=== PATIENT | male | born 1935 | race Caucasian/White ===

== ENCOUNTER → 2023-08-08 11:01 | Outpatient (REF) | payer OTHER, SELFPAY | LOC: HWRCS 11:01 | PROVIDERS: ATTENDING PHYSICIAN Internal Medicine Cardiovascular Disease; FAMILY PHYSICIAN Family Medicine | DX: R55 Syncope and collapse (principal); I25.10 Atherosclerotic heart disease of native coronary artery without angina pectoris; I34.0 Nonrheumatic mitral (valve) insufficiency | CPT/HCPCS: 93306 ==

== ENCOUNTER 2023-12-08 11:53 | Emergency (ER) | payer OTHER, SELFPAY ==
[2023-12-08 12:23] VITALS: BP 128/103
--- NOTE | 2023-12-08 12:49 | ED.GENMED ---
History of Present Illness
<Annie Ferrer PA-C - Last Filed: 12/08/23 17:22>
General
Chief Complaint: Swelling
Source: patient
Time Seen by Provider: 12/08/23 12:42
History of Present Illness
History of Present Illness:
88yoM with a history of coronary artery disease, hypertension, hyperlipidemia, and type 2 diabetes presenting for evaluation of right leg swelling. Patient had a fall about a week ago and was seen at [place] ED. He had x-rays of his right hip and
he was told that he had arthritis in the hip as well as a 'slight crack.' He has been having ongoing pain since then and woke up this morning with swelling to the thigh so he decided to come to the ED. He has no other complaints currently. He denies
any further injury since his initial fall. He typically ambulates with a walker.
Past History
<Annie Ferrer PA-C - Last Filed: 12/08/23 17:22>
Past History
ED Past Medical History: CAD, HTN, Hypercholesterolemia and NIDDM
ED Past Surgical History: Cardiac and Orthopedic
Social History
Tobacco: Former smoker
Alcohol: None
Drug: None
Personal:
Living: alone
Employment: Employed
Family History
Family History: Other (Noncontributory)
Phy Exam
<Annie Ferrer PA-C - Last Filed: 12/08/23 17:22>
General Physical Exam
General Presentation: well appearing and no apparent distress
General age: appears stated age
General Skin: warm and dry
General Habitus: elderly
Pulmonary Exam
Pulmonary Exam: no respiratory distress
[place] Coma Scale
Eye Opening: Spontaneous
Verbal Response: Oriented
Motor Response: Obeys Commands
GCS Total Score: 15
Musculoskeletal Exam
Musculoskeletal Exam: other (R thigh: Ecchymosis noted to anterior/medial thigh with swelling in the thigh. Compartments soft and compressible. ROM of R hip decreased 2/2 pain.)
Skin Exam
Skin Exam: warm/dry
Psychiatric Exam
Psychiatric Exam: normal mood/affect
<Gayla Alvarado MD - Last Filed: 12/08/23 16:50>
[place] Coma Scale
GCS Total Score: 15
Scores
<Annie Ferrer PA-C - Last Filed: 12/08/23 17:22>
Heart Failure Risk
Heart Failure Risk Score: Not Applicable
Course
<Annie Ferrer PA-C - Last Filed: 12/08/23 17:22>
Orders/Labs/Results
Orders:
Orders
12/08/23 12:49
CR Femur - Right Min 2 Vw Urgent
Comment:
Reason For Exam: Injury
Hip, Right 2-3 Views [CR Hip - RT w/wo Pel 2-3 Vw*] Urgent
Comment:
Reason For Exam: Pain
Include a pelvis x-ray?: Yes
Venous Doppler Lwr Ext Rt [US Periph Venous LOWER Ext RT] Urgent
Comment:
Reason For Exam: R thigh swelling
12/08/23 16:24
Ambulate Patient-Treatment ONCE
Vital Signs
Initial and Last Documented VS:
Initial Vital Signs
Pulse Resp Pulse Ox
73 17 98
12/08/23 12:12 12/08/23 12:12 12/08/23 12:12
Last Documented Vital Signs
Temp Pulse Resp BP Pulse Ox
98.6 F 72 21 159/72 94
12/08/23 12:23 12/08/23 15:29 12/08/23 15:29 12/08/23 15:29 12/08/23 15:29
<Gayla Alvarado MD - Last Filed: 12/08/23 16:50>
Orders/Labs/Results
Orders:
Orders
12/08/23 12:49
CR Femur - Right Min 2 Vw Urgent
Comment:
Reason For Exam: Injury
Hip, Right 2-3 Views [CR Hip - RT w/wo Pel 2-3 Vw*] Urgent
Comment:
Reason For Exam: Pain
Include a pelvis x-ray?: Yes
Venous Doppler Lwr Ext Rt [US Periph Venous LOWER Ext RT] Urgent
Comment:
Reason For Exam: R thigh swelling
12/08/23 16:24
Ambulate Patient-Treatment ONCE
Vital Signs
Initial and Last Documented VS:
Initial Vital Signs
Pulse Resp Pulse Ox
73 17 98
12/08/23 12:12 12/08/23 12:12 12/08/23 12:12
Last Documented Vital Signs
Temp Pulse Resp BP Pulse Ox
98.6 F 72 21 159/72 94
12/08/23 12:23 12/08/23 15:29 12/08/23 15:29 12/08/23 15:29 12/08/23 15:29
<Annie Ferrer PA-C - Last Filed: 12/08/23 17:22>
MDM/Problems Addressed
Differential Diagnosis Includes:
88yoM here with R leg swelling that started this morning. Hx of fall last week and has been having R hip pain since then. He is afebrile and hemodynamically stable. He is well appearing in no distress. There is ecchymosis and swelling noted to the R
thigh. RLE is neurovascularly intact. Differential diagnosis includes but is not limited to: contusion, hematoma, fracture, DVT
Initial ED plan: Check right hip/femur x-rays and venous duplex.
<Gayla Alvarado MD - Last Filed: 12/08/23 16:50>
*Radiology
Radiology exam reviewed: radiology read reviewed
*Pulse Oximetry
Patient hypoxic: no
*EKG
Interpreted by ED Provider?: NA
*Volunteer Services Director Interpretation
Rate: Volunteer Services Director- N/A
*Critical Care Note
Total Time (30-74mins, 75-104mins- exclusive of procedures): Not Applicable
Data Reviewed
Source: patient
<Gayla Alvarado MD - Last Filed: 12/08/23 16:50>
Patient Management
Social determinants of health affecting care: Living situation and Strong social support
<Annie Ferrer PA-C - Last Filed: 12/08/23 17:22>
Update Note
Update Note:
X-rays show osteoarthritis without fractures. Patient signed out to Dr. Alvarado pending venous duplex results.
ED Attending Note
<Annie Ferrer PA-C - Last Filed: 12/08/23 17:22>
-
Portions of this chart may have been created with voice recognition software.� Occasional wrong word or��sound alike� substitutions may have occurred due to the inherent limitations of voice recognition software.
<Gayla Alvarado MD - Last Filed: 12/08/23 16:50>
ED Attending Note
Patient seen and examined by attending physician: Yes
I performed the substantive portion of visit, reviewed & personally made and approve the management plan that is documented in note by myself or KELBY.: Yes
ED Attending Note:
Patient appears well. He is smiling and conversational. Patient was able to walk around steadily with his walker, which is how he generally gets around. X-ray showed no fracture. Ultrasound shows no sign of DVT. Patient reports he is very
comfortable and happy to go home.
Discharge Plan
Departure
Patient Disposition: Home (Routine Discharge)
Date of Disposition: 12/08/23
Time of Disposition: 16:44
Patient with high blood pressure during this ER visit?: Yes
Condition: Good
Covid-19: Not Applicable
Discharge Problem:
Contusion of right thigh
Instructions: BLOOD PRESSURE, Contusion
Prescriptions:
No Action
aspirin 81 MG tablet,delayed release (DR/EC)
81 mg PO DAILY
rosuvastatin [Crestor] 40 MG tablet
40 mg PO HS
tamsulosin 0.4 MG capsule
0.4 mg PO DAILY
citalopram 20 MG tablet
40 mg PO DAILY
nateglinide [Starlix] 60 MG tablet
60 mg PO BID
Patient Comments:
clopidogrel 75 MG tablet
75 mg PO HS
ezetimibe 10 MG tablet
10 mg PO DAILY
nitroglycerin 0.4 MG tablet, sublingual
0.4 mg sublingual [id number] PRN (Reason: CHEST PAIN)
ranolazine 500 MG tablet extended release 12 hr
500 mg PO BID
metformin 500 MG tablet
1,000 mg PO BID
melatonin 10 MG capsule
metoprolol tartrate 12.5 MG tablet
12.5 mg PO BID Qty: 60 0RF
insulin detemir U-100 [Levemir U-100 Insulin] 1,000 UNITS/10 ML solution
10 units SC BID Qty: 0 0RF
Patient Comments:
Patient takes if BS > 140
Referrals:
Ozzy Flores MD [Family Provider] -
Interventions
Interventions:
*Risk Screen - Suicide Last Done: 12/08/23 12:22
*General Assessment Last Done: 12/08/23 12:22
*Neglect/Abuse Screening Last Done: 12/08/23 12:22
*ED COVID-19 Vaccine History Last Done: 12/08/23 12:23
*Nursing Disposition Last Done: 12/08/23 17:03
ED- Cardiac Assessment Last Done: 12/08/23 14:11
ED- Pulmonary Assessment Last Done: 12/08/23 14:11
ED-Skin Assessment Last Done: 12/08/23 14:11
Discharge Date and Time
Discharge Date/Time: 12/08/23 17:08
Print Language: ERITREAN
[2023-12-08 15:29] VITALS: BP 159/72
== END 2023-12-08 17:08 | disposition home or self-care (01) ==
LOC: EMR 11:53
PROVIDERS: EMERGENCY PHYSICIAN Emergency Medicine; FAMILY PHYSICIAN Family Medicine
DX: S70.11XA Contusion of right thigh, initial encounter (principal); W19.XXXA Unspecified fall, initial encounter; E11.9 Type 2 diabetes mellitus without complications; I10 Essential (primary) hypertension; E78.5 Hyperlipidemia, unspecified; I25.10 Atherosclerotic heart disease of native coronary artery without angina pectoris; Z87.891 Personal history of nicotine dependence
CPT/HCPCS: 99284; 73502; 73552; 93971

== ENCOUNTER 2023-12-13 11:15 | Emergency (ER) | payer OTHER, SELFPAY ==
[2023-12-13 11:16] VITALS: BP 96/57
--- NOTE | 2023-12-13 11:46 | ED.GENMED ---
History of Present Illness
General
Chief Complaint: Skin Problem
Source: patient
Exam Limitations: none
Time Seen by Provider: 12/13/23 11:35
Nursing documentation reviewed up to this point in time: agreed with
History of Present Illness
History of Present Illness:
Patient is an 88-year-old male presents to the ER for evaluation of bruising to right thigh. Patient was just recently here December 07 for evaluation of this. It was noted on that visit that a week prio he had a fallr and was taken to [place] ED.
At that time he had x-rays of the hip and told he had arthritis. Because of continued pain he came to the ER December 07 for evaluation. He did have x-rays done of hip femur and also ultrasound which was negative. He is on Plavix.
He does not feel like the bruising is getting better in fact he feels like there is getting slightly worse he has some soreness to the area. He is able to walk. He does live alone and [place].
Past History
Past History
ED Past Medical History: CAD, HTN, Hypercholesterolemia and NIDDM
ED Past Surgical History: Cardiac and Orthopedic
Social History
Tobacco: Former smoker
Alcohol: None
Drug: None
Personal:
Living: alone
Employment: Employed
Family History
Family History: Other (Noncontributory)
Review of Systems
Review of Systems
Allergies reviewed?: Yes
All Other Systems: ROS reviewed and negative except as documented in HPI and ROS
Constitutional: Reports no symptoms
Musculoskeletal: Reports other (right leg bruising /soreness )
Skin: Reports no symptoms
Hematologic/Lymphatic: Reports no symptoms
Psychiatric: Reports no symptoms
Phy Exam
General Physical Exam
General Presentation: no apparent distress
General age: appears stated age
General Skin: warm and dry
General Habitus: elderly
General Mental: alert
General Hydration: appears well hydrated
Neurological Exam
Neurological Exam: alert and oriented x3
Musculoskeletal Exam
Musculoskeletal Exam: other (Bilateral lower extremities with strong pulses right thigh with scattered ecchymosis very minimal swelling compared to left thigh however full range of motion)
Course
Orders/Labs/Results
Orders:
Orders
12/13/23 12:13
Venous Doppler Lwr Ext Rt [US Periph Venous LOWER Ext RT] Urgent
Comment:
Reason For Exam: bruising /pain
12/13/23 12:21
Complete Blood Count/With Diff Urgent
Comprehensive Metabolic Panel Urgent
Abnormal Lab Results
12/13/23
12:21
RBC 4.28 L 10^6/uL
(4.70-6.10)
Hgb 12.5 L g/dL
(13.0-18.0)
Hct 36.3 L %
(39.0-52.0)
RDW 15.2 H %
(11.5-14.5)
Abs Immat Gran (auto) 0.1 H 10^3/uL
(0-0.05)
Absolute Lymphs (auto) 1.1 L 10^3/uL
(1.2-3.4)
Absolute Monos (auto) 0.7 H 10^3/uL
(0.1-0.6)
Immature Gran % 1.1 H %
(0-0.5)
Lymphocytes % 15.8 L %
(20.5-51.1)
Monocytes % 10.2 H %
(1.7-9.3)
BUN 22 H mg/dl
(9-20)
Glucose 177 H mg/dl
(70-99)
12/13/23 12:21
12/13/23 12:21
Vital Signs
Initial and Last Documented VS:
Initial Vital Signs
Temp Pulse Resp BP Pulse Ox
98.4 F 82 18 96/57 96
12/13/23 11:16 12/13/23 11:16 12/13/23 11:16 12/13/23 11:16 12/13/23 11:16
Last Documented Vital Signs
Temp Pulse Resp BP Pulse Ox
98.4 F 75 18 160/77 97
12/13/23 11:16 12/13/23 14:04 12/13/23 14:04 12/13/23 14:04 12/13/23 14:04
MDM/Problems Addressed
MDM/Problems Addressed:
Patient is an 88 show male who lives by himself was seen here December 07 for evaluation of fall that took place over a week ago from that visit. He had x-rays and ultrasound which was negative but continues to complain of bruising that he does not
feel is improving and mild discomfort. Patient is on Plavix will check hemoglobin to make sure no hemoglobin drop and repeat ultrasound. He however is in no acute distress good range of motion to legs.
1420:Patient no acute distress ultrasound negative for DVT. Patient's hemoglobin is stable at 12.5 (last hemoglobins were from 2021). Patient's chemistries are unremarkable(glucose minimally elevated BUN 22)
Likely healing contusion residual ecchymosis.
*Pulse Oximetry
Patient hypoxic: no
*Critical Care Note
Total Time (30-74mins, 75-104mins- exclusive of procedures): Not Applicable
Data Reviewed
Review of Other/Old Records Reveals: Other (previous ED visit)
ED Attending Note
-
Portions of this chart may have been created with voice recognition software.� Occasional wrong word or��sound alike� substitutions may have occurred due to the inherent limitations of voice recognition software.
Discharge Plan
Departure
Patient Disposition: Home (Routine Discharge)
Date of Disposition: 12/13/23
Time of Disposition: 14:25
Patient with high blood pressure during this ER visit?: Yes
Condition: Fair
Covid-19: Not Applicable
Discharge Problem:
Contusion
Instructions: BLOOD PRESSURE, Contusion
Prescriptions:
No Action
aspirin 81 MG tablet,delayed release (DR/EC)
81 mg PO DAILY
rosuvastatin [Crestor] 40 MG tablet
40 mg PO HS
tamsulosin 0.4 MG capsule
0.4 mg PO DAILY
citalopram 20 MG tablet
40 mg PO DAILY
nateglinide [Starlix] 60 MG tablet
60 mg PO BID
Patient Comments:
clopidogrel 75 MG tablet
75 mg PO HS
ezetimibe 10 MG tablet
10 mg PO DAILY
nitroglycerin 0.4 MG tablet, sublingual
0.4 mg sublingual [id number] PRN (Reason: CHEST PAIN)
ranolazine 500 MG tablet extended release 12 hr
500 mg PO BID
metformin 500 MG tablet
1,000 mg PO BID
melatonin 10 MG capsule
metoprolol tartrate 12.5 MG tablet
12.5 mg PO BID Qty: 60 0RF
insulin detemir U-100 [Levemir U-100 Insulin] 1,000 UNITS/10 ML solution
10 units SC BID Qty: 0 0RF
Patient Comments:
Patient takes if BS > 140
Referrals:
Ozzy Flores MD [Family Provider] -
Activity Restrictions/Additional Instructions:
Your symptoms are consistent with healing contusion. Your labs and ultrasound were unremarkable. Follow-up with your family doctor the next several days return if any worsening of symptoms
Interventions
Interventions:
*Risk Screen - Suicide Last Done: 12/13/23 11:35
*General Assessment Last Done: 12/13/23 11:35
*Neglect/Abuse Screening Last Done: 12/13/23 11:35
*ED COVID-19 Vaccine History Last Done: 12/13/23 11:35
Discharge Date and Time
Print Language: BENGALI
[2023-12-13 12:30] LABS: % Basophils 0.8 % (0-2); % Eosinophils 2.2 % (0-6); % Immature Granulocytes 1.1 % (0-0.5); % Lymphocytes 15.8 % (20.5-51.1); % Monocytes 10.2 % (1.7-9.3); % Neutrophils 69.9 % (42.2-75.2); Absolute Basophils 0.1 10^3/uL (0-0.2); Absolute Eosinophils 0.2 10^3/uL (0-0.7); Absolute Immature Granulocytes 0.1 10^3/uL (0-0.05); Absolute Lymphocytes 1.1 10^3/uL (1.2-3.4); Absolute Monocytes 0.7 10^3/uL (0.1-0.6); Hematocrit 36.3 % (39.0-52.0); Hemoglobin 12.5 g/dL (13.0-18.0); Mean Corp Hgb Conc. 34.4 g/dL (33.0-37.0); Mean Corpuscular Hgb 29.2 pg (27.0-31.0); Mean Corpuscular Volume 84.8 fL (80.0-94.0); Mean Platelet Volume 8.8 fL (7.4-10.4); Nucleated Red Blood Cells % 0 % (-); Platelet Count 186 10^3/uL (130-400); Red Blood Cell Count 4.28 10^6/uL (4.70-6.10); Red Cell Dist. Width 15.2 % (11.5-14.5); White Blood Cell Count 7.1 10^3/uL (4.8-10.8)
[2023-12-13 12:44] LABS: ALT (SGPT) 28 U/L (0-50); AST (SGOT) 33 U/L (17-59); Albumin 4.1 g/dl (3.5-5.0); Alkaline Phosphatase 68 U/L (38-126); Blood Urea Nitrogen 22 mg/dl (9-20); Calcium 9.1 mg/dl (8.4-10.2); Carbon Dioxide 26 mmol/L (22-30); Chloride 103 mmol/L (98-107); Glucose 177 mg/dl (70-99); Potassium 4.8 mmol/L (3.5-5.1); Sodium 140 mmol/L (135-145); Total Bilirubin 1.1 mg/dl (0.2-1.3); Total Protein 6.3 g/dl (6.3-8.2); eGFR > 60.00
[2023-12-13 14:04] VITALS: BP 160/77
[2023-12-13 14:43] VITALS: BP 160/77
== END 2023-12-13 15:00 | disposition home or self-care (01) ==
LOC: EMR 11:15
PROVIDERS: Nurse Practitioner; EMERGENCY PHYSICIAN Emergency Medicine; FAMILY PHYSICIAN Family Medicine
DX: S70.11XA Contusion of right thigh, initial encounter (principal); X58.XXXA Exposure to other specified factors, initial encounter; E11.9 Type 2 diabetes mellitus without complications; E78.00 Pure hypercholesterolemia, unspecified; I10 Essential (primary) hypertension; I25.10 Atherosclerotic heart disease of native coronary artery without angina pectoris; Z79.02 Long term (current) use of antithrombotics/antiplatelets; Z87.891 Personal history of nicotine dependence; Z60.2 Problems related to living alone
CPT/HCPCS: 99284; 80053; 85025; 93971

== ENCOUNTER 2024-05-18 17:20 | Inpatient (IN) | payer OTHER, SELFPAY ==
[2024-05-18] VITALS (8 sets, daily range): BP systolic 87–113; BP diastolic 51–67; BMI 22.5
--- NOTE | 2024-05-18 14:20 | ED.GENMED ---
History of Present Illness
General
Chief Complaint: Chest Problem
Source: patient
Exam Limitations: none
Time Seen by Provider: 05/18/24 14:19
Nursing documentation reviewed up to this point in time: agreed with
History of Present Illness
History of Present Illness:
88-year-old male with history of CVA, dementia, AAA, HTN, HLD, OR, BPH, kidney stones, IDDM, anemia, alcohol abuse, depression presents from where he was diagnosed Flu positive. He told them his chest hurts when he coughs so the called EMS and
sent pt here.
Pt states he hasn't felt well for past 3 days...poor appetite, cough, fatigue. Vomited once this a.m., denies feeling nauseous now. Denies diarrhea.
Past History
Past History
ED Past Medical History: CAD, HTN, Hypercholesterolemia and NIDDM
ED Past Surgical History: Cardiac and Orthopedic
Social History
Tobacco: Former smoker
Alcohol: None
Drug: None
Personal:
Living: alone
Employment: Not employed
Family History
Family History: Other (Noncontributory)
Review of Systems
Review of Systems
Allergies reviewed?: Yes
All Other Systems: ROS reviewed and negative except as documented in HPI and ROS
Constitutional: Reports fatigue; Denies fever
Respiratory: Reports cough; Denies trouble breathing
Cardiac: Reports chest pain; Denies diaphoresis or palpitations
ABD/GI: Reports vomiting (once this a.m.) and anorexia; Denies abdominal pain, nausea, diarrhea or constipated
: Denies dysuria, frequency or difficulty voiding
Musculoskeletal: Reports no symptoms
Skin: Reports no symptoms
Neurological: Reports no symptoms
Phy Exam
Physical Exam
Physical Exam:
GENERAL: No acute distress. A&Ox3. Very pleasant elderly man
CONSTITUTIONAL: Afebrile.
EYES: clear, conjunctivae normal
ENMT: moist mucus membranes, Pharynx nl
RESPIRATORY: Regular respirations, nonlabored, lungs clear. Occasional cough
CARDIOVASCULAR: Regular rate and rhythm, no murmurs, no rubs.
GI: Soft, nontender, normal BS
MUSCULOSKELETAL: Moves with ease. Well perfused. No edema
SKIN: Warm, dry, pink
PSYCH: Normal mood and affect. Well kept, interactive and appropriate
NEUROLOGIC: Awake, alert and oriented. No focal neurological deficits
Course
Orders/Labs/Results
Orders:
Orders
05/18/24 14:19
EKG [Electrocardiogram (*1)] Urgent
Reason for Study: Chest Pain
EKG- Treatment ONCE
Complete Blood Count/With Diff Urgent
05/18/24 14:27
CR Chest - 2 Views Urgent
Comment:
Reason For Exam: cough, chest pain, flu positive
05/18/24 14:29
0.9% Sodium Chloride 500 ml [Nss] 500 ml IV BOLUS
05/18/24 14:34
CMP [Comprehensive Metabolic Panel] Urgent
COVID-19 Antigen Urgent
Source: Nasal Swab
Troponin I Urgent
Influenza A+B Rapid Molecular Urgent
ANGELI Source: Nasal Swab
Specimen Description:
05/18/24 15:20
Aspirin 325 mg PO NOW STA
05/18/24 17:00
Electrocardiogram (*1) Urgent
Reason for Study: Atrial Fibrillation
Other Reason for Exam: Was sinus on arrival
EKG- Treatment ONCE
05/18/24 17:01
PTT Urgent
Comment: Obtain baseline before beginning heparin infusion if not already collected
Heparin 4,000 units IV NOW STA
Pharmacy Request to Place See Dose Instructions PO NOW STA
Discontinue all Active Warfarin orders?: Yes
Nursing to Place Non Medication Order As Directed
Physician Order: PTT 6 hours after initial start of Heparin infusion
05/18/24 17:03
Admit/Transfer Patient As Directed
Co-Sign Provider:
Level of Care: Inpatient admission
Assign to:: Telemetry
Physician / Group: anastasia
Diagnosis: nstemi
Reason for Telemetry: Arrhythmia
Date to Stop Telemetry: 05/21/24
Time to Stop Telemetry: 11:00
Reason for Hospitalization: nstemi
Expected length of stay greater than two midnights?: Yes
ELOS- Estimated Length of Stay in days: 2
I certify the patient meets the requirements for IP care: Yes
PRN Pain Medication Management As Directed
May give lesser potent ordered pain med per pt: Yes
preference::
Protocol:: Medication orders for pain may be administered in a
manner that supports deferring to patient preference
when the pt is:
- Requesting an ordered lesser potent pain medication.
Least to most potent pain medications are defined
as: acetaminophen < NSAID < tramadol < opioids
(morphine, oxycodone, hydromorphone).
- Requesting a lesser dose of the same medication IF
ORDERED.
- Requesting a less intrusive route of administration
if both routes are prescribed by the provider (PO <
IV).
05/18/24 17:04
Code Status As Directed
Resuscitation Status: Full Code
05/18/24 17:15
Heparin 44599 Units/250 ml 25,000 units in 250 ml IV PER PROTOCOL
Weight to be used for heparin protocol in kilograms (kg):: 71.2
Protocol:: Cardiac Tx/Acute Coronary
PTT Goal Range to be used:: PTT 73 to 111 seconds
Order type:: Initial
INITIAL Infusion Dose (UNITS/KG/hr) & then follow protocol:: 12 units/kg/hr
Infusion Dose in UNITS/hr & then follow protocol (UNITS/hr):: 850
INFUSION RATE in mL/hr & then follow protocol (mL/hr):: 8.5
PTT less than or equal to 64 seconds:: Increase rate by 200 units/hr (+ 2 mL/hr)
PTT 64.1 to 72.9 seconds:: Increase rate by 100 units/hr (+ 1 mL/hr)
PTT 73 to 111 seconds:: Target Range. No change in rate.
PTT 111.1 to 130.9 seconds:: Decrease rate by 100 units/hr (- 1 mL/hr)
PTT 131 to 199.9 seconds:: HOLD for 1 hr. Then decrease rate by 200 units/hr (- 2 mL/hr)
PTT greater than or equal to 200 seconds:: HOLD for 2 hrs & Notify Provider. Then decrease by 200 units/hr (-
2 mL/hr)
Lab follow-up:: Each change, PTT q6h until 2 consecutive are therapeutic. Then PTT
daily.
05/18/24 17:30
Troponin I Urgent
05/18/24 18:[address] See Dose Instructions IV DIRECTED
05/21/24 11:00
DC Protocol for Telemetry ONCE
Abnormal Lab Results
05/18/24
14:34
Sodium 126 L mmol/L
(135-145)
Chloride 92 L mmol/L
(98-107)
BUN 33 H mg/dl
(9-20)
Glucose 412 H mg/dl
(70-99)
Calcium 7.9 L mg/dl
(8.4-10.2)
Troponin I 0.112 H* ng/ml
Total Protein 6.0 L g/dl
(6.3-8.2)
05/18/24 14:34
Vital Signs
Initial and Last Documented VS:
Initial Vital Signs
Temp Pulse Resp BP Pulse Ox
98.2 F 77 28 113/51 91
05/18/24 13:58 05/18/24 13:58 05/18/24 13:58 05/18/24 13:58 05/18/24 13:58
Last Documented Vital Signs
Temp Pulse Resp BP Pulse Ox
98.8 F 117 16 103/54 93
05/18/24 13:58 05/18/24 16:15 05/18/24 16:15 05/18/24 16:00 05/18/24 16:15
MDM/Problems Addressed
Differential Diagnosis Includes:
Flu, COVID, pneumonia, costochondritis, myocarditis
MDM/Problems Addressed:
88-year-old male with history of CVA, dementia, AAA, HTN, HLD, OR, BPH, kidney stones, IDDM, anemia, alcohol abuse, depression presents from where he was diagnosed Flu positive. He told them his chest hurts when he coughs so the called EMS and
sent pt here.
Pt states he hasn't felt well for past 3 days...poor appetite, cough, fatigue. Vomited once this a.m., denies feeling nauseous now. Denies diarrhea.
Afebrile, VSS, pleasant and alert, NAD
EKG: NSR
Pt lives alone with son and daughter in the area that keep in close communication
3:00 PM:
CBC:
CMP: Sodium 126, BUN 33, glucose 412 IVF's ordered for dehydration, prerenal hyponatremia, hyperglycemia
Flu A positive. Symptoms started 3 days ago, out of window for Tamiflu
Troponin 0.112
4:oo p.m.
CXR NAD
Case discussed with Dr. Kee who agrees admit: trend Troponin, Sodium
Pt received ASA by EMS en route
Hospitalist notified of admission.
Requests repeat EKG as he noted afib on bedside monitor
EKG: New onset a fib.
Requests Heparin drip (ordered)
Chronic conditions affecting care: DM, HTN, Kidney disease and Other (Dementia)
*EKG
EKG Intrepretation Date: 05/18/24
Interpretation: normal
Heart Rate: 78
Rate: normal
Rhythm: sinus
[place]: normal axis
Interval: normal interval
QRS Pattern: normal QRS
Ischemia: no ischemia
*Critical Care Note
Total Time (30-74mins, 75-104mins- exclusive of procedures): Not Applicable
ED Attending Note
-
Portions of this chart may have been created with voice recognition software.� Occasional wrong word or��sound alike� substitutions may have occurred due to the inherent limitations of voice recognition software.
Discharge Plan
Departure
Patient Disposition: Admit
Date of Disposition: 05/18/24
Time of Disposition: 15:49
Admit to: Med/Surg
Presentation/result/management discussed w/ accepting MD/DO: Hospitalist
Condition: Fair
Covid-19: Negative COVID-19
Discharge Problem:
Influenza A, Acute hyponatremia, Elevated troponin, New onset a-fib
Prescriptions:
No Action
aspirin 81 MG tablet,delayed release (DR/EC)
81 mg PO DAILY
rosuvastatin [Crestor] 40 MG tablet
40 mg PO HS
tamsulosin 0.4 MG capsule
0.4 mg PO DAILY
citalopram 20 MG tablet
40 mg PO DAILY
nateglinide [Starlix] 60 MG tablet
60 mg PO BID
Patient Comments:
clopidogrel 75 MG tablet
75 mg PO HS
ezetimibe 10 MG tablet
10 mg PO DAILY
nitroglycerin 0.4 MG tablet, sublingual
0.4 mg sublingual [id number] PRN (Reason: CHEST PAIN)
ranolazine 500 MG tablet extended release 12 hr
500 mg PO BID
metformin 500 MG tablet
1,000 mg PO BID
melatonin 10 MG capsule
metoprolol tartrate 12.5 MG tablet
12.5 mg PO BID Qty: 60 0RF
insulin detemir U-100 [Levemir U-100 Insulin] 1,000 UNITS/10 ML solution
10 units SC BID Qty: 0 0RF
Patient Comments:
Patient takes if BS > 140
Referrals:
UNKNOWN - PT NOT,INTERVIEWE [Family Provider] -
Interventions
Interventions:
*Risk Screen - Suicide Last Done: 05/18/24 13:58
*General Assessment Last Done: 05/18/24 13:58
*Neglect/Abuse Screening Last Done: 05/18/24 13:58
ED- Fall Risk Assessment Last Done: 05/18/24 14:24
*ED COVID-19 Vaccine History Last Done: 05/18/24 13:58
ED- Cardiac Assessment Last Done: 05/18/24 14:24
ED- Pulmonary Assessment Last Done: 05/18/24 14:24
Discharge Date and Time
Print Language: MALAY
[2024-05-18] MEDS: NSS 500 IV ×3 (14:35→19:20)
[2024-05-18 14:59] LABS: ALT (SGPT) 26 U/L (0-50); AST (SGOT) 41 U/L (17-59); Albumin 3.5 g/dl (3.5-5.0); Alkaline Phosphatase 80 U/L (38-126); Blood Urea Nitrogen 33 mg/dl (9-20); Calcium 7.9 mg/dl (8.4-10.2); Carbon Dioxide 26 mmol/L (22-30); Chloride 92 mmol/L (98-107); Estimated Creatinine Clearance 53 ml/min; Glucose 412 mg/dl (70-99); Potassium 4.6 mmol/L (3.5-5.1); Sodium 126 mmol/L (135-145); Total Bilirubin 0.5 mg/dl (0.2-1.3); eGFR > 60.00
[2024-05-18 15:14] LABS: Troponin I 0.112 ng/ml
[2024-05-18 15:20] LABS: COVID-19 Antigen Negative (Negative)
--- NOTE | 2024-05-18 17:11 | HPS.HSE ---
Family Physician
-
Family Physician: INTERVIEWE UNKNOWN - PT NOT
Chief Complaint
-
chest pain
History of Present Illness
88-year-old male past medical history of CAD status post stents in the distant past, CVA, dementia, abdominal aortic aneurysm, hypertension, hyperlipidemia, BPH, nephrolithiasis, diabetes, anemia, alcohol use disorder, depression, presenting from
urgent care where he was diagnosed with flu. He was complaining of chest pain when he coughs so EMS was called and sent patient here. Chest pain is described as pressure and occurred without exertion. Denies sweating. He denies chest pain
currently.
He has been having cough, fatigue and weakness for the past 3 days. Denies fevers or chills. Had 1 episode of vomiting this morning. Denies diarrhea. He was diagnosed with flu here in the emergency room today.
He denies smoking or alcohol use.
Medical History
Past Medical History
Past Medical History: Reports Other (CAD status post stents in the distant past, CVA, dementia, abdominal aortic aneurysm, hypertension, hyperlipidemia, BPH, nephrolithiasis, diabetes, anemia, alcohol use disorder, depression)
Past Surgical History: Reports None
Social History
Tobacco: Non-smoker
Alcohol: None
Drug: None
Family History
Family History: Not pertinent
Allergies / Home Medications
Allergies reflects when Allergies were last updated in Five minutes.
Home Medications with original date entered in Five minutes
Allergy/Medication List:
Allergies
Allergy/AdvReac Type Severity Reaction Status Date / Time
No Known Allergies Allergy Verified 12/13/23 11:18
Home Medications
aspirin 81 mg tablet,delayed release 81 mg PO DAILY Blood clot prevention/tx 10/08/18
rosuvastatin 40 mg tablet (Crestor) 40 mg PO HS High cholesterol 10/08/18
tamsulosin 0.4 mg capsule 0.4 mg PO DAILY Urinary issue 05/01/19
citalopram 20 mg tablet 40 mg PO DAILY MENTAL HEALTH 01/07/20
nateglinide 60 mg tablet (Starlix) 60 mg PO BID Diabetes 01/07/20
clopidogrel 75 mg tablet 75 mg PO HS Blood clot prevention/tx 08/08/20
ezetimibe 10 mg tablet 10 mg PO DAILY High cholesterol 11/04/20
melatonin 10 mg capsule 11/16/20
metformin 500 mg tablet 1,000 mg PO BID Diabetes 11/16/20
nitroglycerin 0.4 mg sublingual tablet 0.4 mg sublingual [id number] PRN CHEST PAIN 11/16/20
ranolazine 500 mg tablet,extended release,12 hr 500 mg PO BID Heart disease/condition 11/16/20
insulin detemir U-100 100 unit/mL subcutaneous solution (Levemir U-100 Insulin) 10 units (0.1 mL) SC BID Diabetes ##0 11/18/20
metoprolol tartrate 25 mg tablet 12.5 mg (1/2 x 25 mg) PO BID ##60 11/18/20
Review of Systems
-
History Source: Patient
A 12 point ROS was completed and negative except as noted: Yes
Constitutional: Reports No Symptoms
EENT: Reports No Symptoms
Respiratory: Reports See HPI
Cardiac: Reports See HPI
Abdomen/GI: Reports No Symptoms
: Reports No Symptoms
Musculoskeletal: Reports No Symptoms
Skin: Reports No Symptoms
Neurological: Reports No Symptoms
Endocrine: Reports No Symptoms
Hematologic/Lymphatic: Reports No Symptoms
Psych: Reports No Symptoms
Physical Exam
Vital Signs
Vital Signs
Temp Pulse Resp BP Pulse Ox
98.8 F 117 16 103/54 93
05/18/24 13:58 05/18/24 16:15 05/18/24 16:15 05/18/24 16:00 05/18/24 16:15
Physical Exam
General: Well Developed, Well Nourished and No Apparent Distress
HEENT: NormoCephalic, Moist mucous membranes and Atraumatic
Respiratory: Clear
Cardiac: S1/S2 and Regular Rhythm; No Murmur or Rub
GI: Soft, Non Tender, Non Distended and Normal Bowel Sounds; No Organomegaly
Rectal: Deferred by Provider
Musculoskeletal: No Clubbing, No Cyanosis and No Edema
Skin: No Rash
Neuro: Nonfocal/grossly intact
Laboratory Results
-
05/18/24 14:34
Laboratory Results
Total Bilirubin 0.5 mg/dl (0.2-1.3) 05/18/24 14:34
AST 41 U/L (17-59) 05/18/24 14:34
ALT 26 U/L (0-50) 05/18/24 14:34
Alkaline Phosphatase 80 U/L (38-126) 05/18/24 14:34
Troponin I 0.112 ng/ml H* 05/18/24 14:34
Data Reviewed
-
Lab Data: Labs Reviewed by me
Old Records: Reviewed
Impression/Plan
-
IMPRESSION:
PLAN:
# Chest pain likely NSTEMI
# History of CAD
-First EKG sinus rhythm without ischemic changes
-Troponin of 0.112
-Trend troponins
-Aspirin given continue Plavix
-Start heparin drip
-Check echo
-Cardiology consulted
-Continue ranolazine
# Likely new onset atrial fibrillation
-On telemetry with irregular rhythm with heart rate up to 130s
-Check repeat EKG
-Going to be on heparin drip for likely NSTEMI
-Continue IV fluids
# Influenza infection
-Not hypoxemic
-Chest x-ray shows no acute process
-Start Tamiflu given ongoing medical issues although technically out of window
# Hyperglycemia secondary to infection
# Type 2 diabetes
-IV fluids given
-Continue Levemir 34 units at nighttime
-Insulin sliding scale
-Hold metformin
# Pseudohyponatremia secondary to hyperglycemia
-Monitor
History of CVA
Dementia
Abdominal aortic aneurysm
Essential hypertension
-Continue metoprolol
Hyperlipidemia
-Continue Zetia, statin
BPH
-Continue tamsulosin
History of nephrolithiasis
Chronic anemia
-Check CBC
Former alcohol use disorder
Depression
-Continue citalopram
Full code
DVT prophylaxis-heparin drip
Cardiac diet
[2024-05-18 17:48] LABS: APTT 32.8 Sec (23.4-35.0)
[2024-05-18] MEDS: HEPARIN 4000 UNITS IV (17:53)
[2024-05-18] MEDS: HEPARIN 25000 UNITS/250 ML IV (17:54)
[2024-05-18 18:05] LABS: Troponin I 0.091 ng/ml
[2024-05-18 18:27] LABS: % Basophils 0.4 % (0-2); % Immature Granulocytes 0.6 % (0-0.5); % Lymphocytes 9.7 % (20.5-51.1); % Monocytes 11.1 % (1.7-9.3); % Neutrophils 78.2 % (42.2-75.2); Absolute Lymphocytes 0.5 10^3/uL (1.2-3.4); Absolute Monocytes 0.6 10^3/uL (0.1-0.6); Hematocrit 41.1 % (39.0-52.0); Mean Corp Hgb Conc. 34.1 g/dL (33.0-37.0); Mean Corpuscular Volume 82.2 fL (80.0-94.0); Nucleated Red Blood Cells % 0 % (-); Platelet Count 115 10^3/uL (130-400); Red Cell Dist. Width 14.6 % (11.5-14.5); White Blood Cell Count 5.1 10^3/uL (4.8-10.8)
--- NOTE | 2024-05-18 19:00 | EDRN ---
notified of patient's heart rate and blood pressure. Patient received NSS 500 cc bolus as ordered.
--- NOTE | 2024-05-18 19:16 | EDRN ---
notified of continued HR and BP after receiving NSS bolus.
[2024-05-18] MEDS: TAMIFLU 30 MG PO (19:58)
[2024-05-18] MEDS: NSS 1000 IV (20:01)
--- NOTE | 2024-05-18 20:31 | EDRN ---
Pt removed from bedpan - soft, formed brown stool. Perineal care provided. New chux pad underneath pt. Pt able to log roll by himself on the stretcher. Pt denies pain.
--- NOTE | 2024-05-18 21:04 | EDRN ---
Called pharmacy to verify 2200 medications and send geovany and jason
[2024-05-18 22:04] LABS: Glucose - Point of Care 306 mg/dl (70-99)
--- NOTE | 2024-05-18 22:14 | EDRN ---
Received jason for 2199 but not crestor - called pharmacy to send
[2024-05-18] MEDS: LANTUS 0.34 UNITS SC (22:22)
[2024-05-18] MEDS: CRESTOR 40 MG PO (22:22)
[2024-05-18] MEDS: MELATONIN 10 MG PO (22:22)
--- NOTE | 2024-05-18 22:43 | EDRN ---
Pt asked that his wallet be placed with his clothing. Pt's shoes placed in bottom of clothing bag and wallet placed in the shoe. Pt aware and thanked this RN for hiding his wallet in his shoe. Pt aware of repeat blood work to be drawn around
midnight. Turned off pt's TV per his request and helped reposition him so he can go to sleep.
--- NOTE | 2024-05-18 23:08 | EDRN ---
Noticed Dr Salcedo admitted pt to telemetry but then upgraded him to IMU earlier. Confirmed via TT that Dr Salcedo wants pt as a telemetry admission.
[2024-05-19] VITALS (9 sets, daily range): BP systolic 94–115; BP diastolic 41–71; PULSE 66; O2SAT 94
[2024-05-19 00:43] LABS: APTT > 200 Sec (23.4-35.0)
[2024-05-19 00:47] LABS: Troponin I 0.084 ng/ml
--- NOTE | 2024-05-19 00:55 | EDRN ---
Marii Velázquez notified via TT that PTT >200 and heparin was stopped at 0046
[2024-05-19] MEDS: HEPARIN 25000 UNITS/250 ML IV (02:49)
[2024-05-19] MEDS: NSS 1000 IV (05:45)
[2024-05-19 06:03] LABS: % Basophils 0.6 % (0-2); % Immature Granulocytes 0.9 % (0-0.5); % Lymphocytes 20.9 % (20.5-51.1); % Monocytes 13.4 % (1.7-9.3); % Neutrophils 64.2 % (42.2-75.2); Absolute Lymphocytes 0.7 10^3/uL (1.2-3.4); Absolute Monocytes 0.5 10^3/uL (0.1-0.6); Absolute Neutrophils 2.2 10^3/uL (1.4-6.5); Hematocrit 38.9 % (39.0-52.0); Hemoglobin 13.2 g/dL (13.0-18.0); Mean Corp Hgb Conc. 33.9 g/dL (33.0-37.0); Mean Corpuscular Hgb 28.1 pg (27.0-31.0); Mean Corpuscular Volume 82.9 fL (80.0-94.0); Nucleated Red Blood Cells % 0 % (-); Platelet Count 110 10^3/uL (130-400); Red Blood Cell Count 4.69 10^6/uL (4.70-6.10); Red Cell Dist. Width 14.8 % (11.5-14.5); White Blood Cell Count 3.4 10^3/uL (4.8-10.8)
[2024-05-19 06:56] LABS: Troponin I 0.106 ng/ml
--- NOTE | 2024-05-19 07:37 | CON.CAR ---
Addendum entered and electronically signed by Michell Hernández DO 05/19/24 11:05:
I saw and examined the patient.
The Caseworker's note was reviewed and I agree with the note.
Comment: Patient was seen and examined in ED 33. Chart/telemetry reviewed. Mr. Lu is an 88-year-old gentleman who lives independent however does have family in the area as well as a nurse who comes to his home once every couple of weeks and
helps him with his medications. He is followed by my colleague Dr. Szymanski last seen in August. Mr Lu has a history of CAD status post PTCA and CABG, type 2 diabetes, PAD status post right distal SFA SYSTEM SAFETY MANAGER and stent, bilateral CEA, chronic kidney
disease, hyperlipidemia, lacunar CVA, hypertension, GERD, COPD, AAA, Anemia, depression presents from urgent care following diagnosis of flu. Patient complained of chest pain and was sent to ED. He is overall a poor historian. Presented with 3-day
history of generalized fatigue, myalgias, fever, cough, shortness of breath, weakness cough and 1 episode of vomiting. He went to urgent care and tested positive for influenza A and referred to the ED. He denies influenza vaccination this year.
Per chart review he also reported episodes of chest pain however he states that he has had no recent chest pain during our interview. He is currently chest pain-free. While in the emergency department he had an episode of rapid atrial fibrillation
with spontaneous conversion to sinus rhythm. He is currently on an IV heparin drip. Initial troponin 0.112. Patient reports he is prone to falls and walks with a walker and cane. He lives alone and has a nurse who comes twice a week. He tells
me he had a fall about a month ago when getting up from the toilet. No syncope, lightheadedness.
GEN: Appears ill. Awake alert and oriented to person place and time although a poor historian. 84% on room air; 93% on 3 L nasal cannula
HEENT: Mucous membranes mildly dry
LUNGS: Bronchovesicular breath sounds with coarse rhonchi. No wheezes. No crackles
CV: Reg, S1/S2, 1/6 syst LSB, no murmur
ABD: soft, BS+, NT/ND
EXT: No edema
Plan:
Influenza A with hypoxic respiratory distress
-Patient is poor historian however states that symptoms started last
-Unvaccinated
-COVID-negative
-Management per hospitalist
-Oxygen supplementation and pulmonary toilet
Paroxysmal atrial fibrillation with rapid response in the setting of influenza
-New diagnosis
-spontaneously converted back to NSR
-telemetry personally reviewed: NSR current, was in afib with RVR, self-converted to NSR 0
-[id number] (age, HTN, DM, vasc dz, CVA)
-start anticoagulation with Eliquis 5mg BID and stop IV Heparin [patient does not believe he has been on Plavix for some time will verify with home nurse or family.]
-Check TSH
-fall risk - has had falls in past, lives alone- PT consult
-case management consult for safety in home setting
Known coronary artery disease with history of CABG status post stent of distal and proximal vein graft lesions with SINGH to treat in-stent stenosis distally and proximally in vein graft 08/2020
-Troponin 0.112�0 0.091�0 0.084�0.106
-Currently chest pain-free
-Optimize medical therapy
-Supportive care with current influenza A infection; O2 supplementation as needed
-Eventual ischemic evaluation. If remains chest pain-free with stable echocardiogram would opt for outpatient Lexiscan nuclear stress test.
-Continue aspirin
-Check lipid profile
Type 2 diabetes mellitus uncontrolled with hemoglobin A1c 11.2%
-Defer management to hospitalist
-Will consider addition of SGLT2 inhibitor
-Importance of normoglycemia stressed
Thrombocytopenia new since December, likely related to influenza A infection
-Monitor platelets with new start of Eliquis
-Hemoglobin 13.2 g/dL
History of PAD/carotid disease status post bilateral CEA/AAA and prior lacunar infarct�no active issues
Will follow with you
Original Note:
Consultation
Consultation Request
Date/Time Consultation Requested: 05/18/20242029
Date/Time Consultation Performed: 05/19/2024, 744
Requesting Provider: Rose Salcedo MD
Performing Provider: MATTHEW Alvarado for Dr Waters
Reason for Consultation: chest pain
Medical History
-
Chief Complaint: chest pain
History of Present Illness:
88-year-old male with history of CAD status post PTCA and CABG, type 2 diabetes, PAD status post right distal SFA SYSTEM SAFETY MANAGER and stent, bilateral CEA, chronic kidney disease, hyperlipidemia, lacunar CVA, hypertension, GERD, COPD, AAA, Anemia, depression
presents from urgent care following diagnosis of flu. Patient complained of chest pain and was sent to ED. Presented with 3-day history of cough, fatigue, shortness of breath, weakness. 1 episode vomiting. Patient reports to me 3-day history of
chest discomfort described as pressure radiating from right to left side of chest. No radiation down arms or to jaw. Pressure resolved when he arrived at ED.
Initial EKG with normal sinus rhythm, cannot rule out anterior septal VA. Initial troponin 0.112. Patient then went into A-fib with rapid ventricular response. He was started on heparin. Aspirin, Plavix, and ranolazine were continued. Echo was
ordered. He subsequently went back into normal sinus rhythm.
Patient currently with chest pain on deep inspiration. Denies palpitations
Patient reports he is prone to falls and walks with a walker and cane. He lives alone and has a nurse who comes twice a week. He tells me he had a fall about a month ago when getting up from the toilet. No syncope, lightheadedness.
He did not get flu vaccine this year.
ED evaluation:
Troponin 0.112�0 0.091�0 0.084�0.106
EKG at 1417: Normal sinus rhythm cannot rule out anteroseptal VA
EKG at 1718: A-fib with RVR, 126 bpm
Chest x-ray: No acute cardiopulmonary process
Past medical history:
CAD
-CABG approximately 15 years ago in [facility]
-status post stent of distal and proximal vein graft lesions with SINGH to treat in-stent stenosis distally and proximally in vein graft. 08/2020
VA
PAD
-Distal right SFA, SYSTEM SAFETY MANAGER and stent
-Bilateral carotid endarterectomy
Type 2 diabetes
Chronic kidney disease, stage I
hyperlipidemia I
COPD
Crohn's disease
CVA
Hypertension
GERD
Spinal stenosis
Depression
Abdominal aortic aneurysm
Past Medical History
Past Medical History: Other (As above in HPI)
Social History
Tobacco: Former Smoker
Alcohol: None
Family History
Family History: Reviewed & Not Pertinent
Allergies / Home Medications
Allergy/AdvReac Type Severity Reaction Status Date / Time
No Known Allergies Allergy Verified 12/13/23 11:18
�Medication �Instructions �Recorded �Confirmed �Type
aspirin 81 mg tablet,delayed 81 mg PO DAILY Blood clot 10/08/18 05/18/24 History
release prevention/tx
rosuvastatin 40 mg tablet (Crestor) 40 mg PO HS High cholesterol 10/08/18 05/18/24 History
tamsulosin 0.4 mg capsule 0.4 mg PO DAILY Urinary issue 05/01/19 05/18/24 History
citalopram 20 mg tablet 40 mg PO DAILY MENTAL HEALTH 01/07/20 05/18/24 History
nateglinide 60 mg tablet (Starlix) 60 mg PO BID Diabetes 01/07/20 05/18/24 History
clopidogrel 75 mg tablet 75 mg PO HS Blood clot 08/08/20 05/18/24 History
prevention/tx
ezetimibe 10 mg tablet 10 mg PO DAILY High cholesterol 11/04/20 05/18/24 History
melatonin 10 mg capsule 10 mg PO HS 11/16/20 05/18/24 History
metformin 500 mg tablet 1,000 mg PO BID Diabetes 11/16/20 05/18/24 History
nitroglycerin 0.4 mg sublingual 0.4 mg sublingual [id number] PRN 11/16/20 05/18/24 History
tablet CHEST PAIN
ranolazine 500 mg tablet,extended 500 mg PO BID Heart 11/16/20 05/18/24 History
release,12 hr disease/condition
metoprolol tartrate 25 mg tablet 12.5 mg (1/2 x 25 mg) PO BID ##60 11/18/20 05/18/24 Rx
insulin detemir U-100 100 unit/mL 34 units SC .DINNER Diabetes 05/18/24 05/18/24 History
subcutaneous solution
Review of Systems
-
History Source: Patient
All other systems: Negative unless noted
Physical Exam
Vital Signs
Temp Pulse Resp BP Pulse Ox
97.8 F 72 23 109/71 93
05/18/24 19:57 05/19/24 06:00 05/19/24 06:00 05/19/24 06:00 05/18/24 21:00
Lab Results
05/19/24 05:40
Troponin I 0.106 ng/ml H* D 05/19/24 05:40
GEN: No distress, awake, Ox3
HEENT: supple, anicteric, mmm
LUNGS: CTA, no wheezes/rales
CV: Reg, S1/S2, 1/6 syst LSB, no murmur
ABD: soft, BS+, NT/ND
EXT: No edema
NEURO: Gross non-focal
SKIN: No rash
Impression / Plan
-
PCP: Ozzy Gonzales
Primary seamark advanced operator maintainer: JARRELL Szymanski
Impression:
Chest pain with elevated troponin
CAD
New onset A-fib
Influenza A
PAD
DM
CVA
AAA
HTN
hyperlipidemia
Previous cardiovascular testing:
Echo: 08/08/2023: Normal LV size, EF 55%, normal wall motion, normal RV size and function mild , mild TR, PAP 25 to 30 mmHg
Cardiac cath 08/07/2020: Severe [place] three-vessel disease
PFEIFFER to LAD patent
Degenerated vein graft which had no reflow following stent 01/06 is patent with very slow flow, suggestion new disease
Successful stenting of distal and proximal vein graft lesions with Idris
Cardiac cath 01/07/2020: Stent of SVG to RCA with Promus stent, no reflow developed which improved with intracoronary nitroglycerin and nicardipine, patent PFEIFFER to LAD and proximal circumflex stent
Plan:
88-year-old male with history of CAD status post CABG and stents, PAD status post multiple intervention including bilateral CEAs, type 2 diabetes, CVA, hypertension, chronic kidney disease presents with 3-day history of shortness of breath,Cough,
fatigue, weakness, and chest pain. Tested positive for influenza A. Troponin elevated with peak 0.112. Went into A-fib with RVR and converted back to sinus rhythm. Currently chest pain-free.
1. Chest pain
-History of CAD status post CABG and stenting, last stent 2020
-per cardiology records, Plavix was stopped in 01/28 after he was one year s/p SINGH. Pt reports he does not think he is taking Plavix. Will try to clarify with his daughter or his nurse.
-EKG without ST changes, has underlying septal Q waves
-repeat EKG back in NSR
-Troponin elevated 0.112, trending down but most recent then up to 0.106- cont to trend, elevation due to afib w/ RVR?
-CP free since arrival to
-checking echo
-cont antianginals Ranexa
-had been on beta matthew but stopped after admission to [facility] 07/2023 with concern for syncope and mechanical fall - not thought to have true syncope, was bradycardic with HRs 40s and Metoprolol stopped.
-monitor HRs on telem. Ideally would like him on beta matthew given afib
-cont statin, zetia
-check nuclear stress test in outpt setting given elevated troponin
2. afib - new onset
-first known occurrence of afib
-spontaneously converted back to NSR
-telemetry personally reviewed: NSR current, was in afib with RVR, self-converted to NSR 2250
-[id number] (age, HTN, DM, vasc dz, CVA)
-start anticoagulation with Eliquis, stop Heparin - will d/c Plavix.
-fall risk - has had falls in past, lives alone- PT consult
-case management consult for safety in home setting
3. HTN
-previously on Lisinopril and Amlodipine
-monitor BPs for now
-consider restarting meds if needed for HTN
4. Influenza A
-did not get Flu vax this year
-starting on Tamiflu
-CXR no acute process
-continue IV fluids and supportive care
-
[2024-05-19 08:03] LABS: Glucose - Point of Care 208 mg/dl (70-99)
[2024-05-19] MEDS: PLAVIX 75 MG PO (08:04)
[2024-05-19] MEDS: FLOMAX 0.4 MG PO (08:04)
[2024-05-19] MEDS: LOW STRENGTH ASPIRIN 81 MG PO (08:04)
[2024-05-19] MEDS: TAMIFLU 30 MG PO (08:04)
[2024-05-19] MEDS: ZETIA 10 MG PO (08:04)
[2024-05-19] MEDS: RANEXA EXTENDED RELEASE 500 MG PO ×2 (09:02→22:36)
[2024-05-19] MEDS: CELEXA 40 MG PO (09:02)
[2024-05-19] MEDS: LOPRESSOR 12.5 MG PO ×2 (09:02→19:00)
[2024-05-19 09:27] LABS: APTT 83.3 Sec (23.4-35.0)
[2024-05-19 09:29] LABS: ALT (SGPT) 28 U/L (0-50); AST (SGOT) 56 U/L (17-59); Albumin 2.8 g/dl (3.5-5.0); Alkaline Phosphatase 61 U/L (38-126); Blood Urea Nitrogen 26 mg/dl (9-20); Calcium 7.5 mg/dl (8.4-10.2); Carbon Dioxide 22 mmol/L (22-30); Chloride 104 mmol/L (98-107); Estimated Creatinine Clearance 76 ml/min; Glucose 198 mg/dl (70-99); Potassium 4.2 mmol/L (3.5-5.1); Sodium 132 mmol/L (135-145); Total Bilirubin 0.3 mg/dl (0.2-1.3); Total Protein 5.2 g/dl (6.3-8.2); eGFR > 60.00
[2024-05-19 09:33] LABS: Glycohemoglobin (HgbA1c) 11.2 % (4.0-5.6)
[2024-05-19] MEDS: NOVOLOG FLEXPEN-LOW RESISTANCE 2 UNITS SC ×2 (10:22→17:30)
--- NOTE | 2024-05-19 10:36 | W.PN.UPDATE ---
Update Note
Progress Note Update
On 05/19/2024 spoke with daughter Jojo Lu [phone]. Updated her on pt's case. She does not manage pts meds, gave me # of Manisha, nurse at [facility], who sees pt in home, # [phone].
Spoke w/ Manisha:
pt not on Plavix, Lisinopril or Amlodipine (last 2 stopped in [facility] when pt there for fall, thought to have orthostatic hypotension). Manisha reports pt has frequent falls. Has had multiple admssions to [facility]. Lives in [facility],
all on one floor. Pt has not wanted to leave his home for assisted living when discussed in past. Manisha trying to arrrange for visiting doctors to see him in future. Manisha reports pt noncompliant with taking meds.
[2024-05-19] MEDS: ELIQUIS 5 MG PO ×2 (12:33→19:01)
--- NOTE | 2024-05-19 12:43 | CM ---
Addendum entered by Adrienne Vazquez 05/19/24 12:52:
Per VN, is not current
Pt notes visiting nurse Q2 weeks, provider unknown
Original Note:
CM met with pt bedside
Pt reside alone in a modular home with 2 SAMANTHA
Pt is indep with his ADLs with use of a SPC or WW
He no longer drives and family assists with errands
Pt notes he is current with [facility]
Denies financial insecurities
No home O2 at baseline
PCP- [facility], previously Dr Ozzy Duarte, unsure of new PCP name
[facility]- [facility]
PT eval pending
CM consult for med pricing
Call with [facility] [phone]
Eliquis 5mg BID & Jardiance 1- mg QD $15 30 days
Update to cardio/TT
CM offered call to family
He declined noting he already alerted dtr of admission
Son/Ridge is POA and primary contact
Droplet precautions for flu+
Discharge Disposition- anticipate home with [facility], watch for O2
[2024-05-19 12:53] LABS: Glucose - Point of Care 254 mg/dl (70-99)
[2024-05-19 13:14] LABS: Troponin I 0.079 ng/ml
[2024-05-19] MEDS: NOVOLOG FLEXPEN-LOW RESISTANCE 3 UNITS SC (13:26)
--- NOTE | 2024-05-19 15:18 | W.PN.HOSP.TC ---
Today's Communication/Plan
-
see outlined plan below
Assessment / Plan
Assessment / Plan
Echo: Low normal left ventricular systolic function visually estimated 50-54% with no regional wall motion abnormality. Moderate concentric left ventricular perjury with severe subaortic septal hypertrophy. Normal right ventricular size and systolic
function Mildly dry left atrium Mild mitral regurgitation [place], sclerotic aortic valve without significant stenosis. No significant aortic regurgitation. Trivial tricuspid regurgitation
Estimated pulmonary artery pressure of 40-45 mmHg assuming a right atrial pressure of 3 mmHg. No pericardial effusion Compared to prior study dated 08/08/2023, ejection fraction visually estimated
55%. Mild aortic stenosis was previously reported however gradients are similar. Peak aortic valve velocity 154 cm/s with peak/mean gradients 9/5 mmHg. Estimated pulmonary artery systolic pressures have increased, previously 25-30 mmHg.
Assessment:
Acute influenza A infection
- continue Tamiflu
- continue pulm toilet and supportive care
New onset Parox A. Fib
- now converted back to NSR
- continue Metoprolol
- currently on IV Heparin (requires intensive monitoring of PTTs). start Huang mcfarland; [id number] (age, HTN, DM, vasc dz, CVA)
Chest pain with troponin elevation, likely nonischemic myocardial injury in setting of influenza
hx of CAD with history of CABG 15 years ago, hx of stenting distal/proximal vein graft lesions with SINGH 2020
hx of MN
- trop peaked at .112
- Echo: as above
- continue ASA/BB/Ranexa
- outpatient ischemic evaluation
Acute thrombocytopenia in setting of influenza
- monitor CBC daily
PAD s/p SFA/stent
Hx of bilateral carotid endarterectomy
Type 2 DM, uncontrolled
- A1c is 11
- TRANSPLANT REGISTERED NURSE consulted; for now continue Glargine and Metformin. Continue SSI
Pseudohyponatremia secondary to hyperglycemia
CKD stage 1
HLD - continue meds. check lipid panel
COPD
- prn nebs
Crohns disease
CVA
hx of dementia
Essential HTN
- continue BB
BPH - continue tamsulosin
GERD
Spinal stenosis
Depression
- continue citalopram
hx of Abdominal aortic aneurysm
Former alcohol use disorder
DVT ppx: Eliquis
Code: Full
Anticipated Discharge: > 48 hours
Subjective/Interval History
-
Date of Service: May 19, 2024
resting comfortably
no SOB or chest pain
Objective Data
-
Labs:
Laboratory Results
05/19/24 05/19/24 05/19/24
05:40 08:57 14:55
WBC 3.4 L
Hgb 13.2
Hct 38.9 L
Plt Count 110 L
APTT 83.3 H Pending
Sodium Cancelled 132 L
Potassium Cancelled 4.2
Chloride Cancelled 104
Carbon Dioxide Cancelled 22
BUN Cancelled 26 H
Creatinine Cancelled 0.7
Glucose Cancelled 198 H
Calcium Cancelled 7.5 L
Total Bilirubin Cancelled 0.3
AST Cancelled 56
ALT Cancelled 28
Alkaline Phosphatase Cancelled 61
Vital Signs:
Vital Signs
Temp Pulse Resp BP Pulse Ox
98.2 F 60 18 94/46 93
05/19/24 12:09 05/19/24 12:09 05/19/24 12:09 05/19/24 12:09 05/19/24 13:23
I&O
05/18/24 05/19/24 05/20/24
06:59 06:59 06:59
Intake Total 970 / 970
Output Total 750 / 750
Balance 220 / 220
Physical Exam
-
General: Well Developed and Well Nourished
HEENT: Normocephalic and Atraumatic
Respiratory: Negative Wheezes
Cardiac: Regular Rhythm and S1/S2
GI: Soft
Genito-urinary: No Costovertebral Tender
Neuro: AO x 3
Psych: Calm
Data Reviewed
-
Total Time Spent with Patient (in minutes): 51
Labs: Labs Reviewed by me
--- NOTE | 2024-05-19 15:33 | PN.DE.MGMTRT ---
Insulin Management
- -
05/19/2024: Diabetes Management Consult.
88 year old male who was sent to ED from Urgent care due to chest pain related to influenza.
PMH: HTN, HLD, CAD s/p stents, CVA, Dementia, AAA, BPH, Nephrolithiasis, Anemia, Alcohol use disorder, depression and T2DM.
He has been having cough, fatigue and weakness for the past 3 days. He was taking Nateglinide 60 mg BID, Metformin 1000 mg BID and Levemir 34 units @ HS.
States that he has not been consistent with taking his Levemir or checking his blood sugars because he has been a bit depressed, tho he reports he has a working at meter. A1C is 11.2%, Cr 0.7, eGFR >60, glucose on admission was 306.
Current IP diabetes regimen includes Glargine 34 units @ HS and Metformin 1000mg BID.
Pt awake, alert, oriented, sitting up in bed, offers no complaints, able to discuss diabetes care.
FBG was 198(V), 208 POC and 254 pre-lunch. Will switch to Glipizide 5mg BID while in hospital, 1st dose at dinner time (Nateglinide NF)
Cont Glargine 34 units and Metformin 1000 mg BID and low corrective with meals.
Modify diet to 1800 vida Heart healthy diet.
Diabetes History
- -
Type of Diabetes: 2 requiring insulin
Pre-Admission Diabetes Regimen
05/19/24 05/19/24
05:40 08:57
Creatinine Cancelled 0.7
Lab Results
Hemoglobin A1c 11.2 % (4.0-5.6) H 05/19/24 05:40
Insulin Pump Settings
IP Diabetes Regimen
05/18/24 05/19/24 05/19/24
22:03 05:40 08:01
Glucose Cancelled
POC Glucose 306 H 208 H
05/19/24 05/19/24
08:57 12:42
Glucose 198 H
POC Glucose 254 H
Patient Education
[2024-05-19 16:16] LABS: APTT 93.4 Sec (23.4-35.0)
[2024-05-19 17:22] LABS: Glucose - Point of Care 240 mg/dl (70-99)
[2024-05-19] MEDS: GLUCOPHAGE 1000 MG PO (17:31)
[2024-05-19] MEDS: GLUCOTROL 5 MG PO (17:31)
[2024-05-19] MEDS: NSS IV (17:50)
[2024-05-19] MEDS: TAMIFLU 75 MG PO (19:01)
[2024-05-19] MEDS: LANTUS 0.34 UNITS SC (21:52)
[2024-05-19] MEDS: CRESTOR 40 MG PO (21:52)
[2024-05-19] MEDS: MELATONIN 10 MG PO (21:52)
[2024-05-19 22:01] LABS: TSH Reflex To Free T4 2.04 uIU/ml (0.47-4.68)
[2024-05-19 22:02] LABS: Glucose - Point of Care 191 mg/dl (70-99)
[2024-05-19] MEDS: ROBITUSSIN DM 5 ML PO (22:37)
[2024-05-20] VITALS (7 sets, daily range): BP systolic 101–117; BP diastolic 43–54; PULSE 62; O2SAT 91
[2024-05-20 07:27] LABS: Glucose - Point of Care 96 mg/dl (70-99)
--- NOTE | 2024-05-20 08:08 | PN.DE.MGMTRT ---
Insulin Management
- -
05/20/2024: Diabetes Management Consult Follow up
Patient was sent to ED from Urgent care due to chest pain related to influenza.
PMH: HTN, HLD, CAD s/p stents, CVA, Dementia, AAA, BPH, Nephrolithiasis, Anemia, Alcohol use disorder, depression and T2DM.
He has been having cough, fatigue and weakness for the past 3 days. He was taking Nateglinide 60 mg BID, Metformin 1000 mg BID and Levemir 34 units @ HS.
States that he has not been consistent with taking his Levemir or checking his blood sugars because he has been a bit depressed, tho he reports he has a working glucose meter. A1C is 11.2%, Cr 0.7, eGFR >60, glucose on admission was 306.
Current IP diabetes regimen includes Glargine 34 units @ HS and Metformin 1000mg BID.
Pt awake, alert, oriented, sitting up in bed, offers no complaints, able to discuss diabetes care.
Glucose range 05/19 191 to 254, fasting this AM 96.
Glipizide 5mg BID first dose started with dinner 05/19. Will continue Glargine 34 units and Metformin 1000 mg BID and low corrective with meals.
Discussed with nurse.
Diabetes History
- -
Type of Diabetes: 2
Pre-Admission Diabetes Regimen
05/19/24
08:57
Creatinine 0.7
Lab Results
Hemoglobin A1c 11.2 % (4.0-5.6) H 05/19/24 05:40
Insulin Pump Settings
IP Diabetes Regimen
05/19/24 05/19/24 05/19/24
08:57 12:42 16:51
Glucose 198 H
POC Glucose 254 H 240 H
05/19/24 05/20/24
21:51 07:15
Glucose
POC Glucose 191 H 96
Patient Education
[2024-05-20 08:23] LABS: % Basophils 0.5 % (0-2); % Immature Granulocytes 0.5 % (0-0.5); % Lymphocytes 20.6 % (20.5-51.1); % Monocytes 10.4 % (1.7-9.3); Absolute Lymphocytes 0.9 10^3/uL (1.2-3.4); Absolute Monocytes 0.4 10^3/uL (0.1-0.6); Absolute Neutrophils 2.8 10^3/uL (1.4-6.5); Hematocrit 37.3 % (39.0-52.0); Hemoglobin 12.3 g/dL (13.0-18.0); Mean Corpuscular Hgb 27.8 pg (27.0-31.0); Mean Corpuscular Volume 84.2 fL (80.0-94.0); Mean Platelet Volume 9.2 fL (7.4-10.4); Nucleated Red Blood Cells % 0 % (-); Platelet Count 100 10^3/uL (130-400); Red Blood Cell Count 4.43 10^6/uL (4.70-6.10); Red Cell Dist. Width 14.7 % (11.5-14.5); White Blood Cell Count 4.1 10^3/uL (4.8-10.8)
[2024-05-20 08:48] LABS: Blood Urea Nitrogen 20 mg/dl (9-20); Calcium 7.9 mg/dl (8.4-10.2); Carbon Dioxide 25 mmol/L (22-30); Chloride 100 mmol/L (98-107); Estimated Creatinine Clearance 59 ml/min; Glucose 104 mg/dl (70-99); HDL Cholesterol 20 mg/dl; LDL Cholesterol, Calculated 9 mg/dl; Potassium 4.2 mmol/L (3.5-5.1); Sodium 134 mmol/L (135-145); Total Cholesterol 62 mg/dl (50-199); Triglyceride 167 mg/dl (10-149); Very Low Density Lipoprotein 33 mg/dl (0-30); eGFR > 60.00
--- NOTE | 2024-05-20 09:16 | W.PN.HOSP.TC ---
Today's Communication/Plan
-
continue current plan of care
wean O2
Assessment / Plan
Assessment / Plan
Echo: Low normal left ventricular systolic function visually estimated 50-54% with no regional wall motion abnormality. Moderate concentric left ventricular perjury with severe subaortic septal hypertrophy. Normal right ventricular size and systolic
function Mildly dry left atrium Mild mitral regurgitation Trileaflet, sclerotic aortic valve without significant stenosis. No significant aortic regurgitation. Trivial tricuspid regurgitation
Estimated pulmonary artery pressure of 40-45 mmHg assuming a right atrial pressure of 3 mmHg. No pericardial effusion Compared to prior study dated 08/08/2023, ejection fraction visually estimated
55%. Mild aortic stenosis was previously reported however gradients are similar. Peak aortic valve velocity 154 cm/s with peak/mean gradients 9/5 mmHg. Estimated pulmonary artery systolic pressures have increased, previously 25-30 mmHg.
Assessment:
acute hypoxic respiratory insufficiency on 3L NC
- wean O2 as able
Acute influenza A infection
- continue Tamiflu, day 2
- continue pulm toilet and supportive care
New onset Parox A. Fib
- now converted back to NSR
- continue Metoprolol
- continue Eliquis. [id number] 7 (age, HTN, DM, vasc dz, CVA)
- Cardiology following
Chest pain with troponin elevation, likely nonischemic myocardial injury in setting of influenza
hx of CAD with history of CABG 15 years ago, hx of stenting distal/proximal vein graft lesions with SINGH [address]
- trop peaked at .112
- Echo: as above
- continue ASA/BB/Ranexa
- outpatient ischemic evaluation
- Cardiology following
Acute thrombocytopenia in setting of influenza
- monitor CBC daily
hyponatremia
PAD s/p SFA/stent
Hx of bilateral carotid endarterectomy
Type 2 DM, uncontrolled
- A1c is 11
- SORTER PACKER following
- continue diabetic diet
- continue Glargine. Continue SSI
- continue Metformin. glipizide (in hospital replacement for nateglinide)
Pseudohyponatremia secondary to hyperglycemia
CKD stage 1
HLD - continue meds. LDL 9
COPD
- prn nebs
Crohns disease
CVA
hx of dementia
Essential HTN
- continue BB
BPH - continue tamsulosin
GERD
Spinal stenosis
Depression
- continue citalopram
hx of Abdominal aortic aneurysm
Former alcohol use disorder
DVT ppx: Eliquis
Code: Full
Anticipated Discharge: > 48 hours
Subjective/Interval History
-
Date of Service: May 20, 2024
denies cp or sob
denies any new complaints
remains on 3L NC
Objective Data
-
Labs:
Laboratory Results
05/20/24
08:05
WBC 4.1 L
Hgb 12.3 L
Hct 37.3 L
Plt Count 100 L
Sodium 134 L
Potassium 4.2
Chloride 100
Carbon Dioxide 25
BUN 20
Creatinine 0.9
Glucose 104 H
Calcium 7.9 L
Vital Signs:
Vital Signs
Temp Pulse Resp BP Pulse Ox
98.8 F 65 18 104/43 93
05/20/24 07:47 05/20/24 07:47 05/20/24 07:47 05/20/24 07:47 05/20/24 07:47
I&O
05/19/24 05/20/24 05/21/24
06:59 06:59 06:59
Intake Total 970 / 970
Output Total 750 / 750
Balance 220 / 220
Physical Exam
-
General: No Apparent Distress
HEENT: Normocephalic and Atraumatic
Respiratory: Rhonchi; Negative Wheezes
Cardiac: Regular Rhythm and S1/S2
GI: Soft and Nontender
Musculoskeletal: No Edema
Neuro: AO x 3
Hematologic / Lymphatic: No Lymphadenopathy
Psych: Calm
Data Reviewed
-
Total Time Spent with Patient (in minutes): 41
Labs: Labs Reviewed by me
[2024-05-20] MEDS: NOVOLOG FLEXPEN-LOW RESISTANCE SC ×3 (09:36→17:11)
[2024-05-20] MEDS: RANEXA EXTENDED RELEASE 500 MG PO ×2 (10:00→19:49)
[2024-05-20] MEDS: FLOMAX 0.4 MG PO (10:00)
[2024-05-20] MEDS: MUCINEX 1200 MG PO ×2 (10:00→19:49)
[2024-05-20] MEDS: GLUCOTROL 5 MG PO ×2 (10:00→18:29)
[2024-05-20] MEDS: GLUCOPHAGE 1000 MG PO ×2 (10:00→18:29)
[2024-05-20] MEDS: CELEXA 40 MG PO (10:00)
[2024-05-20] MEDS: LOPRESSOR 12.5 MG PO (10:00)
[2024-05-20] MEDS: ZETIA 10 MG PO (10:00)
[2024-05-20] MEDS: TAMIFLU 75 MG PO ×2 (10:01→19:50)
[2024-05-20] MEDS: ELIQUIS 5 MG PO ×2 (10:01→19:50)
[2024-05-20] MEDS: LOW STRENGTH ASPIRIN 81 MG PO (10:01)
--- NOTE | 2024-05-20 11:17 | W.PN.CARDCBS ---
Addendum entered and electronically signed by Dennis Waters MD 05/20/24 11:35:
I saw and examined the patient.
The CENSUS ENUMERATOR or PA's note was reviewed and I agree with the note.
Comment: General: Well developed, well nourished in NAD.
Neck: Supple, no JVD, HJR, carotids +2 B/L, no bruits bilaterally.
Heart: Non displaced PMI, RRR, no murmurs, No S3, S4, no rubs.
Lungs: Scattered rhonchi at the bases
Extremities: No clubbing, cyanosis or edema bilaterally.
Neuro: Grossly nonfocal, awake, alert and oriented x3.
He remains in sinus rhythm. He remains on oxygen possibly due to flu. Echocardiogram was okay. Consider outpatient stress test although troponin elevation felt to be due to nonischemic myocardial injury. Continue Eliquis. Remains
thrombocytopenic but is stable
Original Note:
Today's Communication / Plan
-
continue treatment of flu
continue asa, crestor, zetia, lopressor, ranexa
remains in SR. continue eliquis
needs improved diabetic control
consider OP ischemic evaluation
Impression / Plan
-
PCP: Ozzy Gonzales
Primary sourcing coordinator: JARRELL Szymanski
Impression:
Chest pain
Elevated troponin, suspected nonischemic myocardial injury secondary to rapid afib and flu
CAD with prior CABG and PCI 2020
New onset A-fib with spontaneous conversion to SR
Influenza A
PAD
DM
CVA
AAA
HTN
hyperlipidemia
Cardiac cath 01/07/2020: Stent of SVG to RCA with Promus stent, no reflow developed which improved with intracoronary nitroglycerin and nicardipine, patent PFEIFFER to LAD and proximal circumflex stent
Cardiac cath 08/07/2020: Severe [place] three-vessel disease
PFEIFFER to LAD patent
Degenerated vein graft which had no reflow following stent 01/06 is patent with very slow flow, suggestion new disease
Successful stenting of distal and proximal vein graft lesions with Idris
Echo: 08/08/2023: Normal LV size, EF 55%, normal wall motion, normal RV size and function mild , mild TR, PAP 25 to 30 mmHg
ECHO 05/19/24: EF 50 to 54%, no regional wall motion abnormality, moderate concentric LVH with severe subaortic septal hypertrophy, mild MR, PAP 40 to 45 mmHg
Plan:
-He presented due to chest discomfort with coughing. tested positive for flu at urgent care and was referred to ER
-continue supportive care of influenza. on tamiflu
-wean supp O2 as able
-was in afib with RVR in ER, spontaneously converted to SR without recurrence
-continue OP low dose lopressor. of note, has history of bradycardia and possible syncope in past while on metoprolol.
-[id number] score of 7 for age, HTN, CHF, DM, vascular disease, history of CVA. started on eliquis. continue OP asa. plavix stopped to reduce bleeding risks.
-cardiology consulted due to elevated troponin in setting of prior CAD s/p CABG and stenting, peak trop 0.112 this admit. no CP. EKGs both in afib and SR without acute ischemic changes. suspected nonischemic myocardial injury secondary to rapid AF
and flu.
-echo 05/19 with results as above
-consider OP ischemic evaluation once recovered. last cath was in 2020 with results as above.
-continue OP ranexa
-LDL 9. continue crestor, zetia.
-hgbA1c 11.2%. needs improved diabetic control. on starlix, metformin, U-100 insulin as OP. consider diabetic mgmt evaluation
-d/w nursing
Progress Note - Homicide Squad Lieutenant
Subjective
Date of Service: May 20, 2024
no CP, palpitations.
Objective
Labs:
05/20/24 08:05
05/20/24 08:05
Labs
Hgb 12.3 g/dL (13.0-18.0) L 05/20/24 08:05
Hct 37.3 % (39.0-52.0) L 05/20/24 08:05
Plt Count 100 10^3/uL (130-400) L 05/20/24 08:05
APTT 93.4 Sec (23.4-35.0) H 05/19/24 14:55
Sodium 134 mmol/L (135-145) L 05/20/24 08:05
Potassium 4.2 mmol/L (3.5-5.1) 05/20/24 08:05
BUN 20 mg/dl (9-20) 05/20/24 08:05
Creatinine 0.9 mg/dL (0.7-1.3) 05/20/24 08:05
Glucose 104 mg/dl (70-99) H 05/20/24 08:05
Troponins
05/18/24 05/18/24 05/18/24
14:34 17:24 18:17
Troponin I 0.112 H* 0.091 H* Cancelled
05/19/24 05/19/24 05/19/24
00:11 05:40 12:37
Troponin I 0.084 H* 0.106 H* D 0.079 H* D
05/19/24
18:00
Troponin I Cancelled
Vital Signs and I&O:
Vital Signs
Temp Pulse Resp BP Pulse Ox
98.8 F 65 18 104/43 93
05/20/24 07:47 05/20/24 07:47 05/20/24 07:47 05/20/24 07:47 05/20/24 11:07
Vital Signs
Temp Pulse Resp BP Pulse Ox
98.8 F 65 18 104/43 93
05/20/24 07:47 05/20/24 07:47 05/20/24 07:47 05/20/24 07:47 05/20/24 11:07
Intake & Output
05/18/24 05/19/24 05/20/24 05/21/24
07:59 07:59 07:59 07:59
Intake Total 970 / 970
Output Total 750 / 750
Balance 220 / 220
Physical Exam
Physical Exam
GEN: No distress, awake, alert, oriented x3. on supp O2. sitting in chair
HEENT: supple, anicteric, mmm, eomi
LUNGS: Scattered rhonchi B/L, no wheezes
CV: Reg, S1/S2, 1/6 syst LSB, no murmur
ABD: soft, BS+, NT/ND
EXT: No cyanosis, clubbing, edema
NEURO: Gross non-focal
SKIN: Warm, pink, dry. No rash
--- NOTE | 2024-05-20 11:22 | CM ---
Addendum entered by Kay Moses 05/20/24 12:19:
Per Amirah at [facility], that can accept Flu patients after 3 days of Tamiflu, afebrile x 24 hours without antipyretics, and symptom free.
Addendum entered by Kay Moses 05/20/24 12:14:
Spoke to patients daughter Jojo Lu P# [phone] with patients permission and called admissions to add as secondary contact.
Patient has been in [facility] in the past and liked it there.
CM will reach out to [facility] to see when they would be able to accept.(flu)
Original Note:
Therapy recommending skilled rehab.
Discussed options with patient.
Referrals placed via [facility].
patient + flu.
Plan: skilled rehab once medically stable, bed available and insurance auth obtained.
[2024-05-20 11:30] LABS: Glucose - Point of Care 156 mg/dl (70-99)
[2024-05-20 16:25] LABS: Glucose - Point of Care 135 mg/dl (70-99)
[2024-05-20] MEDS: LOPRESSOR 25 MG PO (19:49)
[2024-05-20 21:17] LABS: Glucose - Point of Care 167 mg/dl (70-99)
[2024-05-20] MEDS: CRESTOR 40 MG PO (22:02)
[2024-05-20] MEDS: LANTUS 0.34 UNITS SC (22:03)
[2024-05-20] MEDS: MELATONIN 10 MG PO (22:03)
[2024-05-21] VITALS (7 sets, daily range): BP systolic 95–139; BP diastolic 47–63; PULSE 54; O2SAT 96; BMI 22.5
[2024-05-21 07:18] LABS: Glucose - Point of Care 73 mg/dl (70-99)
--- NOTE | 2024-05-21 07:34 | PN.DE.MGMTRT ---
Insulin Management
- -
05/21/2024: Diabetes Management Consult Follow up
Patient was sent to ED from Urgent care due to chest pain related to influenza.
PMH: HTN, HLD, CAD s/p stents, CVA, Dementia, AAA, BPH, Nephrolithiasis, Anemia, Alcohol use disorder, depression and T2DM.
He has been having cough, fatigue and weakness for the past 3 days. He was taking Nateglinide 60 mg BID, Metformin 1000 mg BID and Levemir 34 units @ HS.
States that he has not been consistent with taking his Levemir or checking his blood sugars because he has been a bit depressed, tho he reports he has a working glucose meter. A1C is 11.2%, Cr 0.7, eGFR >60, glucose on admission was 306.
Pt awake, alert, oriented, sitting up in bed, offers no complaints, able to discuss diabetes care.
Glucose range 05/20 96 to 167, required no corrective insulin with meals. Fasting glucose this AM 73. Will reduce HS lantus to 30 units and continue glipizide 5 mg BID and Metformin 1000 mg BID and low corrective with meals.
Discussed with nurse.
Will follow
Diabetes History
- -
Type of Diabetes: 2
Pre-Admission Diabetes Regimen
05/20/24
08:05
Creatinine 0.9
Lab Results
Hemoglobin A1c 11.2 % (4.0-5.6) H 05/19/24 05:40
Insulin Pump Settings
IP Diabetes Regimen
05/20/24 05/20/24 05/20/24
08:05 11:18 16:14
Glucose 104 H
POC Glucose 156 H 135 H
05/20/24 05/21/24
21:06 07:07
Glucose
POC Glucose 167 H 73
Meal type: Dinner
Meal type: Dinner
Meal type: Lunch
Amount consumed: 100%
Amount consumed: 100%
Amount consumed: 90%
Patient Education
[2024-05-21] MEDS: GLUCOPHAGE 1000 MG PO ×2 (08:29→17:20)
[2024-05-21] MEDS: GLUCOTROL 5 MG PO ×2 (08:30→17:20)
[2024-05-21] MEDS: RANEXA EXTENDED RELEASE 500 MG PO ×2 (08:30→19:50)
[2024-05-21] MEDS: NOVOLOG FLEXPEN-LOW RESISTANCE SC ×2 (08:31→17:19)
[2024-05-21] MEDS: MUCINEX 1200 MG PO ×2 (08:32→19:50)
[2024-05-21] MEDS: ZETIA 10 MG PO (08:32)
[2024-05-21] MEDS: FLOMAX 0.4 MG PO (08:33)
[2024-05-21] MEDS: CELEXA 40 MG PO (08:35)
[2024-05-21] MEDS: ELIQUIS 5 MG PO ×2 (08:37→19:51)
[2024-05-21] MEDS: LOPRESSOR 25 MG PO ×2 (08:42→19:50)
[2024-05-21] MEDS: LOW STRENGTH ASPIRIN 81 MG PO (08:42)
[2024-05-21] MEDS: TAMIFLU 75 MG PO ×2 (08:44→19:51)
[2024-05-21 09:15] LABS: Hematocrit 36.8 % (39.0-52.0); Hemoglobin 12.4 g/dL (13.0-18.0); Mean Corp Hgb Conc. 33.7 g/dL (33.0-37.0); Mean Corpuscular Hgb 28.1 pg (27.0-31.0); Mean Corpuscular Volume 83.4 fL (80.0-94.0); Mean Platelet Volume 9.9 fL (7.4-10.4); Platelet Count 103 10^3/uL (130-400); Red Blood Cell Count 4.41 10^6/uL (4.70-6.10); Red Cell Dist. Width 14.6 % (11.5-14.5); White Blood Cell Count 3.8 10^3/uL (4.8-10.8)
[2024-05-21 10:00] LABS: Blood Urea Nitrogen 16 mg/dl (9-20); Calcium 8.1 mg/dl (8.4-10.2); Carbon Dioxide 23 mmol/L (22-30); Chloride 103 mmol/L (98-107); Estimated Creatinine Clearance 59 ml/min; Glucose 68 mg/dl (70-99); Potassium 3.9 mmol/L (3.5-5.1); Sodium 134 mmol/L (135-145); eGFR > 60.00
--- NOTE | 2024-05-21 10:25 | W.PN.CARDCBS ---
Addendum entered and electronically signed by Dennis Waters MD 05/21/24 10:49:
I saw and examined the patient.
The DIRECTOR FURNITURE or PA's note was reviewed and I agree with the note.
Comment: General: Well developed, well nourished in NAD.
Neck: Supple, no JVD, HJR, carotids +2 B/L, no bruits bilaterally.
Heart: Non displaced PMI, RRR, no murmurs, No S3, S4, no rubs.
Lungs: Clear to auscultation bilaterally, no wheeze, rhonchi, rubs bilaterally,
normal expiratory phase.
Extremities: No clubbing, cyanosis or edema bilaterally.
Neuro: Grossly nonfocal, awake, alert and oriented x3.
Remains in sinus rhythm. Continue Lopressor and Eliquis. Continue treatment for flu and weaning oxygen. Stable cardiology status for discharge. Follow-up will be arranged. Will sign off
Original Note:
Today's Communication / Plan
-
remains in SR
continue lopressor, eliquis
wean supp O2
OP ischemic evaluation.
OP cardiac follow up arranged
Impression / Plan
-
PCP: Ozzy Gonzales
Primary sewer builder: JARRELL Szymanski
Impression:
Chest pain
Elevated troponin, suspected nonischemic myocardial injury secondary to rapid afib and flu
CAD with prior CABG and PCI 2020
New onset A-fib with spontaneous conversion to SR
Influenza A
PAD
DM
CVA
AAA
HTN
hyperlipidemia
Cardiac cath 01/07/2020: Stent of SVG to RCA with Promus stent, no reflow developed which improved with intracoronary nitroglycerin and nicardipine, patent PFEIFFER to LAD and proximal circumflex stent
Cardiac cath 08/07/2020: Severe [place] three-vessel disease
PFEIFFER to LAD patent
Degenerated vein graft which had no reflow following stent 01/06 is patent with very slow flow, suggestion new disease
Successful stenting of distal and proximal vein graft lesions with Idris
Echo: 08/08/2023: Normal LV size, EF 55%, normal wall motion, normal RV size and function mild , mild TR, PAP 25 to 30 mmHg
ECHO 05/19/24: EF 50 to 54%, no regional wall motion abnormality, moderate concentric LVH with severe subaortic septal hypertrophy, mild MR, PAP 40 to 45 mmHg
Plan:
-He presented due to chest discomfort with coughing. tested positive for flu at urgent care and was referred to ER
-continue supportive care of influenza. on tamiflu
-wean supp O2 as able
-was in afib with RVR in ER, spontaneously converted to SR without recurrence. of note, there was concern for afib recurrence 03/19 ~4:45PM however this was a telemetry issue and was not this patient. has been in SR
-continue lopressor at increased dose of 25mg BID. of note, has history of bradycardia and possible syncope in past while on metoprolol so will monitor closely
-[id number] score of 7 for age, HTN, CHF, DM, vascular disease, history of CVA. started on eliquis. continue OP asa. plavix stopped to reduce bleeding risks.
-cardiology consulted due to elevated troponin in setting of prior CAD s/p CABG and stenting, peak trop 0.112 this admit. no CP. EKGs both in afib and SR without acute ischemic changes. suspected nonischemic myocardial injury secondary to rapid AF
and flu.
-echo 05/19 with results as above
-consider OP ischemic evaluation once recovered. last cath was in 2020 with results as above.
-continue OP ranexa
-LDL 9. continue crestor, zetia.
-hgbA1c 11.2%. needs improved diabetic control. on starlix, metformin, U-100 insulin as OP. consider diabetic mgmt evaluation
-OP cardiac follow up arranged
-d/w nursing
Progress Note - Fibreglass Gun Hand
Subjective
Date of Service: May 21, 2024
no palpitations, CP, SOB overnight.
Objective
Labs:
05/21/24 08:
05/21/24 08:
Labs
Hgb 12.4 g/dL (13.0-18.0) L 05/21/24 08:29
Hct 36.8 % (39.0-52.0) L 05/21/24 08:
Plt Count 103 10^3/uL (130-400) L 05/21/24 08:
APTT 93.4 Sec (23.4-35.0) H 05/19/24 14:55
Sodium 134 mmol/L (135-145) L 05/21/24 08:
Potassium 3.9 mmol/L (3.5-5.1) 05/21/24 08:
BUN 16 mg/dl (9-20) 05/21/24 08:
Creatinine 0.9 mg/dL (0.7-1.3) 05/21/24 08:
Glucose 68 mg/dl (70-99) L 05/21/24 08:29
Troponins
05/18/24 05/18/24 05/18/24
14:34 17:24 18:17
Troponin I 0.112 H* 0.091 H* Cancelled
05/19/24 05/19/24 05/19/24
00:11 05:40 12:37
Troponin I 0.084 H* 0.106 H* D 0.079 H* D
05/19/24
18:00
Troponin I Cancelled
Vital Signs and I&O:
Vital Signs
Temp Pulse Resp BP Pulse Ox
97.7 F 57 17 119/57 96
05/21/24 07:47 05/21/24 07:47 05/21/24 07:47 05/21/24 07:47 05/21/24 07:47
Vital Signs
Temp Pulse Resp BP Pulse Ox
97.7 F 57 17 119/57 96
05/21/24 07:47 05/21/24 07:47 05/21/24 07:47 05/21/24 07:47 05/21/24 07:47
Intake & Output
05/19/24 05/20/24 05/21/24 05/22/24
07:59 07:59 07:59 07:59
Intake Total 970 / 970 1340 / 1340 180 / 180
Output Total 750 / 750 400 / 400
Balance 220 / 220 940 / 940 180 / 180
Physical Exam
Physical Exam
GEN: No distress, awake, alert, oriented x3. sitting in chair
HEENT: supple, anicteric, mmm, eomi
LUNGS: CTA B/L, no wheezes
CV: Reg, S1/S2, no murmur
ABD: soft, BS+, NT/ND
EXT: No cyanosis, clubbing. trace edema of B/L LE
NEURO: Gross non-focal
SKIN: Warm, pink, dry. No rash
[2024-05-21 11:20] LABS: Glucose - Point of Care 168 mg/dl (70-99)
--- NOTE | 2024-05-21 11:32 | W.PN.HOSP.TC ---
Today's Communication/Plan
-
dc planning to SNF hopefully in 24 hours
Assessment / Plan
Assessment / Plan
Echo: Low normal left ventricular systolic function visually estimated 50-54% with no regional wall motion abnormality. Moderate concentric left ventricular perjury with severe subaortic septal hypertrophy. Normal right ventricular size and systolic
function Mildly dry left atrium Mild mitral regurgitation Trileaflet, sclerotic aortic valve without significant stenosis. No significant aortic regurgitation. Trivial tricuspid regurgitation
Estimated pulmonary artery pressure of 40-45 mmHg assuming a right atrial pressure of 3 mmHg. No pericardial effusion Compared to prior study dated 08/08/2023, ejection fraction visually estimated
55%. Mild aortic stenosis was previously reported however gradients are similar. Peak aortic valve velocity 154 cm/s with peak/mean gradients 9/5 mmHg. Estimated pulmonary artery systolic pressures have increased, previously 25-30 mmHg.
Assessment:
acute hypoxic respiratory insufficiency on 3L NC
- wean O2 as able
Acute influenza A infection
- continue Tamiflu, day 06/11
- continue pulm toilet and supportive care
New onset Parox A. Fib
- now converted back to NSR
- continue Metoprolol
- continue Eliquis. [id number] 7 (age, HTN, DM, vasc dz, CVA)
- Cardiology signed off
Chest pain with troponin elevation, likely nonischemic myocardial injury in setting of influenza
hx of CAD with history of CABG 15 years ago, hx of stenting distal/proximal vein graft lesions with SINGH 2020
hx of AL
- trop peaked at .112
- Echo: as above
- continue ASA/BB/Ranexa
- outpatient ischemic evaluation
- Cardiology signed off
Acute thrombocytopenia in setting of influenza
- monitor CBC daily; plts low 100s, stable
hyponatremia
PAD s/p SFA/stent
Hx of bilateral carotid endarterectomy
Type 2 DM, uncontrolled
- A1c is 11
- SHIPPING RECEIVING MANAGER following
- continue diabetic diet
- continue Glargine. Continue SSI
- continue Metformin. glipizide (in hospital replacement for nateglinide)
Pseudohyponatremia secondary to hyperglycemia
CKD stage 1
HLD - continue meds. LDL 9
COPD
- prn nebs
Crohns disease
CVA
hx of dementia
Essential HTN
- continue BB
BPH - continue tamsulosin
GERD
Spinal stenosis
Depression
- continue citalopram
hx of Abdominal aortic aneurysm
Former alcohol use disorder
DVT ppx: Eliquis
Code: Full
Anticipated Discharge: Within 24 hours
Subjective/Interval History
-
Date of Service: May 21, 2024
no cp, sob or palps
remains O2 dependant on 2-3 L
Objective Data
-
Labs:
Laboratory Results
05/21/24
08:29
WBC 3.8 L
Hgb 12.4 L
Hct 36.8 L
Plt Count 103 L
Sodium 134 L
Potassium 3.9
Chloride 103
Carbon Dioxide 23
BUN 16
Creatinine 0.9
Glucose 68 L
Calcium 8.1 L
Vital Signs:
Vital Signs
Temp Pulse Resp BP Pulse Ox
97.7 F 56 17 100/47 97
05/21/24 11:27 05/21/24 11:27 05/21/24 11:27 05/21/24 11:27 05/21/24 11:27
I&O
05/20/24 05/21/24 05/22/24
06:59 06:59 06:59
Intake Total 1340 / 1340 180 / 180
Output Total 400 / 400
Balance 940 / 940 180 / 180
Physical Exam
-
General: No Apparent Distress
HEENT: Normocephalic and Atraumatic
Respiratory: Negative Wheezes
Cardiac: Regular Rhythm and S1/S2
GI: Soft
Neuro: AO x 3
Psych: Calm
Data Reviewed
-
Total Time Spent with Patient (in minutes): 42
Labs: Labs Reviewed by me
--- NOTE | 2024-05-21 11:53 | CM ---
Addendum entered by Kay Moses 05/21/24 14:53:
ambulance auth with acute care- auth # [id number]
auth provided to Amirah at [facility].
Addendum entered by Kay Moses 05/21/24 12:48:
Spoke with Aleah at [facility]
Approved skilled rehab at [facility]
Approved 5 days
Start date 05/22/24, NRD 05/26/24
Auth # [id number]
Original Note:
Patient for tentative d/c tomorrow to skilled rehab at the [facility].
[facility] NPI# [id number]
Accepting MD Lebron Hernandez NPI# [id number]
[facility]
Report# [phone]
fax# [phone]
[2024-05-21] MEDS: NOVOLOG FLEXPEN-LOW RESISTANCE 1 UNITS SC (12:47)
[2024-05-21 16:36] LABS: Glucose - Point of Care 149 mg/dl (70-99)
[2024-05-21] MEDS: ANESTHETIC LOZENGE 1 LOZENGE PO (20:13)
[2024-05-21] MEDS: MELATONIN 10 MG PO (21:55)
[2024-05-21] MEDS: LANTUS 0.3 UNITS SC (21:56)
[2024-05-21] MEDS: CRESTOR 40 MG PO (21:56)
[2024-05-21 22:00] LABS: Glucose - Point of Care 107 mg/dl (70-99)
[2024-05-22 06:50] LABS: Hematocrit 36.8 % (39.0-52.0); Hemoglobin 12.3 g/dL (13.0-18.0); Mean Corp Hgb Conc. 33.4 g/dL (33.0-37.0); Mean Corpuscular Hgb 27.6 pg (27.0-31.0); Mean Corpuscular Volume 82.5 fL (80.0-94.0); Mean Platelet Volume 9.7 fL (7.4-10.4); Platelet Count 115 10^3/uL (130-400); Red Blood Cell Count 4.46 10^6/uL (4.70-6.10); Red Cell Dist. Width 14.6 % (11.5-14.5); White Blood Cell Count 3.8 10^3/uL (4.8-10.8)
[2024-05-22 07:22] LABS: Blood Urea Nitrogen 16 mg/dl (9-20); Calcium 8.3 mg/dl (8.4-10.2); Carbon Dioxide 25 mmol/L (22-30); Chloride 102 mmol/L (98-107); Estimated Creatinine Clearance 59 ml/min; Glucose 62 mg/dl (70-99); Potassium 4.3 mmol/L (3.5-5.1); Sodium 136 mmol/L (135-145); eGFR > 60.00
--- NOTE | 2024-05-22 07:33 | PN.DE.MGMTRT ---
Insulin Management
- -
05/22/2024: Diabetes Management Consult Follow up
Patient was sent to ED from Urgent care due to chest pain related to influenza.
PMH: HTN, HLD, CAD s/p stents, CVA, Dementia, AAA, BPH, Nephrolithiasis, Anemia, Alcohol use disorder, depression and T2DM.
He has been having cough, fatigue and weakness for the past 3 days. He was taking Nateglinide 60 mg BID, Metformin 1000 mg BID and Levemir 34 units @ HS.
States that he has not been consistent with taking his Levemir or checking his blood sugars because he has been a bit depressed, tho he reports he has a working glucose meter. A1C is 11.2%, Cr 0.7, eGFR >60, glucose on admission was 306.
Pt awake, alert, oriented, sitting up in bed, offers no complaints, able to discuss diabetes care.
Glucose range 05/21 73 to 168, required no corrective insulin with meals. Lantus dose was decreased from 34 units to 30 units. Fasting glucose this AM 62. Will further reduce HS lantus to 25 units and continue glipizide 5 mg BID and Metformin 1000
mg BID and low corrective with meals.
Discussed with nurse.
Will follow
Diabetes History
- -
Type of Diabetes: 2 requiring insulin
Pre-Admission Diabetes Regimen
05/21/24 05/22/24
08: 06:02
Creatinine 0.9 0.9
Lab Results
Hemoglobin A1c 11.2 % (4.0-5.6) H 05/19/24 05:40
Insulin Pump Settings
IP Diabetes Regimen
05/21/24 05/21/24 05/21/24
08:29 11:08 16:25
Glucose 68 L
POC Glucose 168 H 149 H
05/21/24 05/22/24
21:48 06:02
Glucose 62 L
POC Glucose 107 H
Meal type: Lunch
Meal type: Breakfast
Amount consumed: 100%
Amount consumed: 100%
Patient Education
[2024-05-22 07:36] LABS: Glucose - Point of Care 74 mg/dl (70-99)
[2024-05-22] MEDS: NOVOLOG FLEXPEN-LOW RESISTANCE SC ×2 (07:51→12:57)
[2024-05-22 08:00] VITALS: BP 117/62
[2024-05-22] MEDS: MUCINEX 1200 MG PO (08:27)
[2024-05-22] MEDS: RANEXA EXTENDED RELEASE 500 MG PO (08:28)
[2024-05-22] MEDS: CELEXA 40 MG PO (08:28)
[2024-05-22] MEDS: FLOMAX 0.4 MG PO (08:28)
[2024-05-22] MEDS: LOPRESSOR 25 MG PO (08:28)
[2024-05-22] MEDS: ZETIA 10 MG PO (08:28)
[2024-05-22] MEDS: ELIQUIS 5 MG PO (08:28)
[2024-05-22] MEDS: TAMIFLU 75 MG PO (08:28)
[2024-05-22] MEDS: LOW STRENGTH ASPIRIN 81 MG PO (08:28)
[2024-05-22] MEDS: GLUCOPHAGE 1000 MG PO (08:28)
[2024-05-22] MEDS: GLUCOTROL 5 MG PO (08:29)
--- NOTE | 2024-05-22 09:12 | CM ---
Patient for discharge to [facility] today. updated [facility] admissions with plan for discharge.
[facility]
Report# [phone]
fax# [phone]
--- NOTE | 2024-05-22 09:24 | W.PN.HOSP.TC ---
Today's Communication/Plan
-
dc to SNF
Assessment / Plan
Assessment / Plan
Echo: Low normal left ventricular systolic function visually estimated 50-54% with no regional wall motion abnormality. Moderate concentric left ventricular perjury with severe subaortic septal hypertrophy. Normal right ventricular size and systolic
function Mildly dry left atrium Mild mitral regurgitation [place], sclerotic aortic valve without significant stenosis. No significant aortic regurgitation. Trivial tricuspid regurgitation
Estimated pulmonary artery pressure of 40-45 mmHg assuming a right atrial pressure of 3 mmHg. No pericardial effusion Compared to prior study dated 08/08/2023, ejection fraction visually estimated
55%. Mild aortic stenosis was previously reported however gradients are similar. Peak aortic valve velocity 154 cm/s with peak/mean gradients 9/5 mmHg. Estimated pulmonary artery systolic pressures have increased, previously 25-30 mmHg.
Assessment:
acute hypoxic respiratory insufficiency on 3L NC
- wean O2 as able; currently on 2L NC
Acute influenza A infection
- continue Tamiflu, day 07/12
- continue pulm toilet and supportive care
New onset Parox A. Fib
- now converted back to NSR
- continue Metoprolol
- continue Eliquis. [id number] (age, HTN, DM, vasc dz, CVA)
- Cardiology signed off
Chest pain with troponin elevation, likely nonischemic myocardial injury in setting of influenza
hx of CAD with history of CABG 15 years ago, hx of stenting distal/proximal vein graft lesions with SINGH 2020
hx of ID
- trop peaked at .112
- Echo: as above
- continue ASA/BB/Ranexa
- outpatient ischemic evaluation
- Cardiology signed off
Acute thrombocytopenia in setting of influenza
- monitor CBC daily; plts low 100s, stable
hyponatremia
PAD s/p SFA/stent
Hx of bilateral carotid endarterectomy
Type 2 DM, uncontrolled
- A1c is 11
- PRINCIPAL CONSULTANT following
- continue diabetic diet
- continue Glargine. Continue SSI
- continue Metformin. glipizide (in hospital replacement for nateglinide)
Pseudohyponatremia secondary to hyperglycemia
CKD stage 1
HLD - continue meds. LDL 9
COPD
- prn nebs
Crohns disease
CVA
hx of dementia
Essential HTN
- continue BB
BPH - continue tamsulosin
GERD
Spinal stenosis
Depression
- continue citalopram
hx of Abdominal aortic aneurysm
Former alcohol use disorder
DVT ppx: Eliquis
Code: Full
More than 30 minutes spent in discharge including
Final examination of the patient
Summarizing hospital stay
Instructions for continuing care to all relevant caregivers
Preparation of discharge records, prescriptions, and referral forms
Total time spent (in minutes): 41
Anticipated Discharge: Today
Subjective/Interval History
-
Date of Service: May 22, 2024
no new complaints
Objective Data
-
Labs:
Laboratory Results
05/22/24
06:02
WBC 3.8 L
Hgb 12.3 L
Hct 36.8 L
Plt Count 115 L
Sodium 136
Potassium 4.3
Chloride 102
Carbon Dioxide 25
BUN 16
Creatinine 0.9
Glucose 62 L
Calcium 8.3 L
Vital Signs:
Vital Signs
Temp Pulse Resp BP Pulse Ox
97.4 F 59 18 117/62 97
05/22/24 08:00 05/22/24 08:00 05/22/24 08:00 05/22/24 08:00 05/22/24 08:00
I&O
05/21/24 05/22/24 05/23/24
06:59 06:59 06:59
Intake Total 1340 / 1340 420 / 420
Output Total 400 / 400 300 / 300 325 / 325
Balance 940 / 940 120 / 120 -325 / -325
Physical Exam
-
General: No Apparent Distress
HEENT: Normocephalic and Atraumatic
Respiratory: Negative Wheezes
Cardiac: Regular Rhythm and S1/S2
GI: Soft
Genito-urinary: No Costovertebral Tender
Musculoskeletal: No Edema
Neuro: AO x 3
Psych: Calm
Data Reviewed
-
Total Time Spent with Patient (in minutes): 41
Labs: Labs Reviewed by me
--- NOTE | 2024-05-22 09:33 | W.DS.TRANS ---
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
-
Discharge Instructions:
Sleep Apnea Risk Low
Discharge Diagnosis/Procedures influenza infection with hypoxia, rapid Afib -
now in sinus
Diet Low Sodium,Low Cholesterol,Diabetic, Carb
Controlled
Activity As tolerated
Other Services OT,PT
Specialty Instructions Weigh Daily
Instructions:
Stand-Alone Forms:
Changes to Home Medications: Yes
Discharge Medications:
DC Medications w/original date entered in [facility]
aspirin 81 mg tablet,delayed release 81 mg PO DAILY Blood clot prevention/tx 10/08/18
rosuvastatin 40 mg tablet (Crestor) 40 mg PO HS High cholesterol 10/08/18
tamsulosin 0.4 mg capsule 0.4 mg PO DAILY Urinary issue 05/01/19
citalopram 20 mg tablet 40 mg PO DAILY MENTAL HEALTH 01/07/20
nateglinide 60 mg tablet (Starlix) 60 mg PO BID Diabetes 01/07/20
ezetimibe 10 mg tablet 10 mg PO DAILY High cholesterol 11/04/20
melatonin 10 mg capsule 10 mg PO HS 11/16/20
metformin 500 mg tablet 1,000 mg PO BID Diabetes 11/16/20
nitroglycerin 0.4 mg sublingual tablet 0.4 mg sublingual [id number] PRN CHEST PAIN 11/16/20
ranolazine 500 mg tablet,extended release,12 hr 500 mg PO BID Heart disease/condition 11/16/20
Insulin Glargine Lantus [Lantus] 25 units As Directed mls/hr SC HS 05/22/24
apixaban 5 mg tablet (Eliquis) 5 mg PO BID #60 tabs 05/22/24
guaifenesin 600 mg tablet, extended release 12 hr 1,200 mg (2 x 600 mg) PO Q12 #10 tabs 05/22/24
metoprolol tartrate 25 mg tablet 25 mg PO BID #60 tabs 05/22/24
oseltamivir 75 mg capsule 75 mg PO BID #3 caps 05/22/24
Home Medication Changes
Eliquis started for Afib, plavix stopped
Pending Results: No
Total time spent discharging patient (in min): 41
--- NOTE | 2024-05-22 11:21 | CM ---
CM spoke with patient's daughter to update on transportation time.
[2024-05-22 12:48] LABS: Glucose - Point of Care 146 mg/dl (70-99)
== END 2024-05-22 14:00 | DRG 866 ==
LOC: 1 ACUTE 17:20
PROVIDERS: Internal Medicine Cardiovascular Disease; Nurse Practitioner; Registered Nurse; ADMITTING PHYSICIAN Hospitalist; ATTENDING PHYSICIAN Internal Medicine; EMERGENCY PHYSICIAN Student in an Organized Health Care Education/Training Program; OTHER PHYSICIAN Internal Medicine Cardiovascular Disease
DX: J09.X9 Influenza due to identified novel influenza A virus with other manifestations (principal); F03.93 Unspecified dementia, unspecified severity, with mood disturbance; E87.1 Hypo-osmolality and hyponatremia; K50.90 Crohn's disease, unspecified, without complications; I5A Non-ischemic myocardial injury (non-traumatic); Z11.52 Encounter for screening for COVID-19; I48.0 Paroxysmal atrial fibrillation; Z79.02 Long term (current) use of antithrombotics/antiplatelets; Z86.73 Personal history of transient ischemic attack (TIA), and cerebral infarction without residual deficits; F32.A Depression, unspecified; I71.40 Abdominal aortic aneurysm, without rupture, unspecified; N18.1 Chronic kidney disease, stage 1; I12.9 Hypertensive chronic kidney disease with stage 1 through stage 4 chronic kidney disease, or unspecified chronic kidney disease; N40.0 Benign prostatic hyperplasia without lower urinary tract symptoms; D64.9 Anemia, unspecified; F10.10 Alcohol abuse, uncomplicated; R09.02 Hypoxemia; R06.03 Acute respiratory distress; I25.10 Atherosclerotic heart disease of native coronary artery without angina pectoris; Z95.1 Presence of aortocoronary bypass graft; E11.65 Type 2 diabetes mellitus with hyperglycemia; R06.89 Other abnormalities of breathing; D69.59 Other secondary thrombocytopenia; E78.00 Pure hypercholesterolemia, unspecified; J44.9 Chronic obstructive pulmonary disease, unspecified; K21.9 Gastro-esophageal reflux disease without esophagitis; M48.00 Spinal stenosis, site unspecified; E11.22 Type 2 diabetes mellitus with diabetic chronic kidney disease; I08.0 Rheumatic disorders of both mitral and aortic valves; Z79.4 Long term (current) use of insulin; Z79.82 Long term (current) use of aspirin; Z79.899 Other long term (current) drug therapy; Z87.891 Personal history of nicotine dependence
CPT/HCPCS: 71046; 80048; 80053; 80061; 82962; 83036; 84443; 84484; 85025; 85027; 85730; 87502; 87811; 93005; 93306; 96360; 97110; 97167; 97530; 99285

== ENCOUNTER 2024-09-19 10:48 | Emergency (ER) | payer OTHER, SELFPAY ==
[2024-09-19 10:52] VITALS: BP 129/51
[2024-09-19 11:27] VITALS: BP 141/57
--- NOTE | 2024-09-19 12:25 | ED.GENMED ---
History of Present Illness
General
Chief Complaint: Fall
Source: patient and family
Time Seen by Provider: 09/19/24 11:34
History of Present Illness
History of Present Illness:
89-year-old male with past medical history of CVA, previous AAA, hypertension, hyperlipidemia, CAD, CKD, insulin-dependent diabetes presenting to the emergency department for evaluation after he sustained a fall this past Sunday evening while out
for ice cream with his family stating he just accidentally tripped over an uneven curb injuring his right wrist (fracture noted while at urgent care on Sunday evening and splinted) as well as multiple abrasions to the bilateral knees and right
hand. Family reports that patient was also given a for doxycycline for infection but it is unclear as to what infection was being treated or if this was just preventative due to the multiple abrasions. Patient notes gradually worsening pain to the
right anterior chest wall which worsens with movement as well as deep inspiration. Patient believes he did have a rib series performed which did not show any fracture or reported pneumothorax. Patient did not take anything for pain prior to
arrival. He does have Eliquis listed on his medications here however family reports that they took him off of this a few months ago due to patient following with concerns for possible intracranial bleeding if he remained on eliquis
Past History
Past History
ED Past Medical History: CAD, HTN, Hypercholesterolemia and NIDDM
ED Past Surgical History: Cardiac and Orthopedic
Social History
Tobacco: Former smoker
Alcohol: None
Drug: None
Personal:
Living: alone
Employment: Not employed
Family History
Family History: Other (Noncontributory)
Review of Systems
Review of Systems
All Other Systems: ROS reviewed and negative except as documented in HPI and ROS
Phy Exam
Physical Exam
Physical Exam:
GENERAL: Alert , in no apparent distress at rest but is uncomfortable and in pain with any attempted movement as well as with deep inspiration
HEAD: NCAT
EYE: clear conjunctiva
NECK: Supple, no midline ttp
ENT: o/p clr, mmm.
CARDIAC: Regular rate and rhythm .
LUNGS: Clear breath sounds bilaterally, no acute respiratory distress, no wheezes/rales/rhonchi, diffuse proximal and anterior right-sided chest wall tenderness
ABDOMEN: Soft, without focal tenderness, no r/g, no cvat
NEUROLOGICAL: Alert and oriented
SKIN: Warm and dry, scattered abrasions to the bilateral knees, abrasions to the right fingers noted and bandaged from recent injury
MUSCULOSKELETAL: No edema, well perfused.
PSYCH: Normal and appropriate interaction.
Scores
Heart Failure Risk
Heart Failure Risk Score: Not Applicable
Heart Score for Chest Pain Patients
STEMI patient?: Not applicable
Withdrawal Assessment of Alcohol
Withdrawal Assessment Completed?: Not applicable
Course
Orders/Labs/Results
Orders:
Orders
09/19/24 11:44
CT Cervical Spine W/o Iv Contr Urgent
Comment:
Reason For Exam: fall, trauma
CT Chest/abd/pel Wo Iv Cont Urgent
Reason For Exam: right rib pain, difficulty breathing
CT Head W/o Iv Contrast Urgent
Comment:
Reason For Exam: fall, head trauma
09/19/24 11:45
Electrocardiogram (*1) Urgent
Reason for Study: Chest Pain
EKG- Treatment ONCE
Morphine Sulfate 4 mg IV NOW STA
09/19/24 12:32
Complete Blood Count/With Diff Urgent
Comprehensive Metabolic Panel Urgent
PTT Urgent
Prothrombin Time Urgent
Abnormal Lab Results
09/19/24
12:32
RBC 4.58 L 10^6/uL
(4.70-6.10)
Hct 38.1 L %
(39.0-52.0)
RDW 14.6 H %
(11.5-14.5)
Absolute Monos (auto) 0.7 H 10^3/uL
(0.1-0.6)
Monocytes % 11.0 H %
(1.7-9.3)
Potassium 5.6 H mmol/L
(3.5-5.1)
BUN 23 H mg/dl
(9-20)
Glucose 320 H mg/dl
(70-99)
09/19/24 12:32
09/19/24 12:32
Vital Signs
Initial and Last Documented VS:
Initial Vital Signs
Temp Pulse Resp BP Pulse Ox
98.7 F 53 18 129/51 96
09/19/24 10:52 09/19/24 10:52 09/19/24 10:52 09/19/24 10:52 09/19/24 10:52
Last Documented Vital Signs
Temp Pulse Resp BP Pulse Ox
98.7 F 53 26 131/63 97
09/19/24 10:52 09/19/24 13:15 09/19/24 13:15 09/19/24 13:00 09/19/24 13:00
MDM/Problems Addressed
Differential Diagnosis Includes:
Rib fracture, pneumothorax, rib contusion, visceral injury
MDM/Problems Addressed:
89-year-old male presenting to the ER after sustaining a fall this past Sunday, known right wrist fracture for which patient will be following up with orthopedics. Started to experience increased right sided anterior chest wall pain. Pulse ox
incorrectly entered at 79%. During the entirety of my exam patient pulse ox never went below 94% on room air. He does have reproducible anterior and proximal right-sided chest wall tenderness. Given he already had rib series x-ray which
reportedly did not show any rib fracture or pneumothorax will obtain CT of the chest. He does have noted bruising to his lower lip/face area and given potential for distracting injury will obtain CT of the head and C-spine as well. Will order pain
control with morphine. Disposition pending.
*Radiology
Radiology exam reviewed: radiology read reviewed
*Pulse Oximetry
Patient hypoxic: no
Comment: 95%
*EKG
Interpreted by ED Provider?: Yes
Heart Rate: 52
Rate: bradycardiac
Rhythm: sinus
[place]: normal axis
Interval: first degree heart block
Ischemia: no ischemia
*Facility Maintenance Manager Interpretation
Rate: bradycardiac
Rhythm: sinus
*Critical Care Note
Total Time (30-74mins, 75-104mins- exclusive of procedures): Not Applicable
Patient Management
Escalation/DeEscalation of care consider admission/obs:
Patient CT scans without acute findings. 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 Patient remains hemodynamically stable. At this time I do think it is reasonable for patient to be discharged home. We also discussed his hyperglycemia and
patient notes he did not take his insulin this morning as he did not eat prior to coming to the ER. Will send patient home with a prescription for Percocet to be used as needed. I also advised the patient use a stool softener if he is to take this
medication. Both patient and daughter expressed return precaution understanding.
ED Attending Note
-
Portions of this chart may have been created with voice recognition software.� Occasional wrong word or��sound alike� substitutions may have occurred due to the inherent limitations of voice recognition software.
Discharge Plan
Departure
Patient Disposition: Home (Routine Discharge)
Date of Disposition: 09/19/24
Time of Disposition: 13:09
Patient with high blood pressure during this ER visit?: No
Discharge Problem:
Accidental fall, Contusion of rib on right side, Fracture of right wrist
Instructions: Rib fracture or bruised rib - ED discharge instructions
Prescriptions:
New
oxycodone-acetaminophen [Percocet] 5-325 mg tablet
1 tab PO Q6HPRN PRN (Reason: pain) Qty: 8 0RF
No Action
aspirin 81 MG tablet,delayed release (DR/EC)
81 mg PO DAILY
rosuvastatin [Crestor] 40 MG tablet
40 mg PO HS
Rx Instructions:
Unable to verify. [facility] in pharmacy at [place] on weekends
tamsulosin 0.4 MG capsule
0.4 mg PO DAILY
citalopram 20 MG tablet
40 mg PO DAILY
nateglinide [Starlix] 60 MG tablet
60 mg PO BID
Patient Comments:
Rx Instructions:
Unable to verify. [facility] in pharmacy at [place] on weekends
ezetimibe 10 MG tablet
10 mg PO DAILY
nitroglycerin 0.4 MG tablet, sublingual
0.4 mg sublingual [id number] PRN (Reason: CHEST PAIN)
ranolazine 500 MG tablet extended release 12 hr
500 mg PO BID
Rx Instructions:
Unable to verify. [facility] in pharmacy at [place] on weekends
metformin 500 MG tablet
1,000 mg PO BID
Rx Instructions:
Unable to verify. [facility] one in pharmacy at [place] on s
melatonin 10 MG capsule
10 mg PO HS
Rx Instructions:
Unsure of the dose. Unable to verify. [facility] med[facility] one in pharmacy at [place] on weekends
oseltamivir 75 mg Capsule
75 mg PO BID Qty: 3 0RF
Eliquis 5 mg Tablet
5 mg PO BID Qty: 60 0RF
metoprolol tartrate 25 mg Tablet
25 mg PO BID Qty: 60 0RF
guaifenesin 600 mg Tablet Extended Release 12hr
1,200 mg PO Q12 Qty: 10 0RF
Insulin Glargine Lantus [Lantus] 25 UNITS
Subcutaneous Insulin Syringe [Syringe-Insulin] 0 UNIT
As Directed mls/hr SC HS
Ordered By: Maureen Velazquez MD
Last Taken: Unknown
Referrals:
NONE,* [Family Provider, Internal Medicine]
Interventions
Interventions:
*Risk Screen - Suicide Last Done: 09/19/24 10:52
*Neglect/Abuse Screening Last Done: 09/19/24 10:52
*Nursing Disposition Last Done: 09/19/24 13:30
ED-Musculoskeletal Assessment Last Done: 09/19/24 11:34
ED- Neurological Assessment Last Done: 09/19/24 11:34
ED-Skin Assessment Last Done: 09/19/24 11:34
Discharge Date and Time
Discharge Date/Time: 09/19/24 13:30
Print Language: [id number]
[2024-09-19 12:28] VITALS: BP 122/58
[2024-09-19] MEDS: MORPHINE SULFATE 4 MG IV (12:33)
[2024-09-19 12:43] LABS: % Basophils 0.5 % (0-2); % Eosinophils 1.9 % (0-6); % Immature Granulocytes 0.5 % (0-0.5); % Lymphocytes 21.3 % (20.5-51.1); % Neutrophils 64.8 % (42.2-75.2); Absolute Eosinophils 0.1 10^3/uL (0-0.7); Absolute Lymphocytes 1.3 10^3/uL (1.2-3.4); Absolute Monocytes 0.7 10^3/uL (0.1-0.6); Absolute Neutrophils 4.1 10^3/uL (1.4-6.5); Hematocrit 38.1 % (39.0-52.0); Mean Corp Hgb Conc. 34.1 g/dL (33.0-37.0); Mean Corpuscular Hgb 28.4 pg (27.0-31.0); Mean Corpuscular Volume 83.2 fL (80.0-94.0); Mean Platelet Volume 9.3 fL (7.4-10.4); Nucleated Red Blood Cells % 0 % (-); Platelet Count 132 10^3/uL (130-400); Red Blood Cell Count 4.58 10^6/uL (4.70-6.10); Red Cell Dist. Width 14.6 % (11.5-14.5); White Blood Cell Count 6.3 10^3/uL (4.8-10.8)
[2024-09-19 12:54] LABS: INR 1.04
[2024-09-19 12:55] LABS: ALT (SGPT) 28 U/L (0-50); AST (SGOT) 21 U/L (17-59); Albumin 3.9 g/dl (3.5-5.0); Alkaline Phosphatase 63 U/L (38-126); Blood Urea Nitrogen 23 mg/dl (9-20); Calcium 8.9 mg/dl (8.4-10.2); Carbon Dioxide 27 mmol/L (22-30); Chloride 104 mmol/L (98-107); Glucose 320 mg/dl (70-99); Potassium 5.6 mmol/L (3.5-5.1); Sodium 136 mmol/L (135-145); Total Bilirubin 0.7 mg/dl (0.2-1.3); Total Protein 6.5 g/dl (6.3-8.2); eGFR > 60.00
[2024-09-19 13:00] VITALS: BP 131/63
== END 2024-09-19 13:30 | disposition home or self-care (01) ==
LOC: EMR 10:48
PROVIDERS: Physician Assistant Medical; EMERGENCY PHYSICIAN Student in an Organized Health Care Education/Training Program
DX: S20.20XA Contusion of thorax, unspecified, initial encounter (principal); S62.101A Fracture of unspecified carpal bone, right wrist, initial encounter for closed fracture; S60.211A Contusion of right wrist, initial encounter; S80.211A Abrasion, right knee, initial encounter; S80.212A Abrasion, left knee, initial encounter; W19.XXXA Unspecified fall, initial encounter; I25.10 Atherosclerotic heart disease of native coronary artery without angina pectoris; I12.9 Hypertensive chronic kidney disease with stage 1 through stage 4 chronic kidney disease, or unspecified chronic kidney disease; E11.22 Type 2 diabetes mellitus with diabetic chronic kidney disease; E78.00 Pure hypercholesterolemia, unspecified; I71.02 Dissection of abdominal aorta; Z86.73 Personal history of transient ischemic attack (TIA), and cerebral infarction without residual deficits; Z79.4 Long term (current) use of insulin; Z86.79 Personal history of other diseases of the circulatory system; Z87.891 Personal history of nicotine dependence
CPT/HCPCS: 99284; 96374; 70450; 71250; 72125; 74176; 80053; 85025; 85610; 85730; 93005